=== PATIENT | male | born 1970 | race Caucasian/White ===

== ENCOUNTER → 2018-10-25 15:00 | Outpatient (CLI) | payer BC, SELFPAY ==
--- NOTE | 2018-10-25 15:06 | CT_ITS ---
CT abdomen pelvis wo con CLINICAL INDICATION: ITS.REASON: RT FLANK PAIN,HEMATURIA,FAMILY H/O STONES ORDERING PHYSICIAN: Darío Nguyễn MD PATIENT AGE: 48 years COMPARISON: None TECHNIQUE: Axial images obtained with sagittal and coronal reformats. All CT scans at the facility use one or more dose reduction, viz: automated exposure control, ma/kV adjustment per patient size (including targeted exams where dose is matched to indication, i.e. head), or iterative reconstruction technique. PROCEDURE: Oral Contrast: None IV Contrast: None . FINDINGS: Patchy density is present in the right lung base centrally consistent with some atelectatic change. There is a noncalcified 7 mm nodule in the left lower lobe laterally. There are coronary artery calcifications. The liver, gallbladder, spleen, adrenal glands, and pancreas have an unremarkable appearance. There is mild right hydronephrosis and hydroureter secondary to a 5 mm stone in the proximal right ureter at the L3-L4 level. A 3 mm nonobstructing stone is present in the upper pole the right kidney. The left kidney has an unremarkable appearance. No evidence of appendicitis, diverticulitis, intestinal obstruction, or free air. There is diverticulosis of the colon. Prostate is slightly enlarged at 5 cm. Urinary bladder has an unremarkable appearance. There is a small umbilical hernia which. No acute bony findings. Small sclerotic focus involves the left ilium posteriorly nonspecific and may be due to bone now. IMPRESSION: 1. 5 mm right proximal ureteral stone with mild right hydronephrosis and dilated proximal right ureter 2. Right nephrolithiasis. 3. 7 mm noncalcified nodule left lower lobe of the lung. Suggest 6 month follow-up
== END ==
PROVIDERS: PCP Family Medicine; Visit Provider Family Medicine
DX: R10.9 Unspecified abdominal pain (principal); R31.0 Gross hematuria; Z84.1 Family history of disorders of kidney and ureter
CPT/HCPCS: 74176

== ENCOUNTER → 2019-02-15 13:32 | Outpatient (CLI) | payer BC, SELFPAY ==
--- NOTE | 2019-02-15 14:04 | CT_ITS ---
PROCEDURE: CT CHEST W CON CLINICAL HISTORY: LUNG NODULE Follow-up lung nodule COMPARISON: [facility] CT abdomen pelvis wo con from 10/25/2018 TECHNIQUE: 75 mL Optiray 350 IV Axial images obtained with sagittal and coronal reformats. All CT scans at the facility use one or more dose reduction, viz: automated exposure control, ma/kV adjustment per patient size (including targeted exams where dose is matched to indication, i.e. head), or iterative reconstruction technique. FINDINGS: Scattered small nodes are present in the mediastinum. No hilar adenopathy. Some of the nodes contain calcium. Normal heart size. No evidence of pericardial effusion. Coronary artery calcifications are present. No evidence of aortic aneurysm or central pulmonary embolus. There is a 4 mm noncalcified nodule right upper lobe anteriorly. There are mild atelectatic or fibrotic changes in the right lung base with linear density in the right lower lobe posterior laterally consistent with an area of scarring similar to the previous exam. Left lower lobe nodule at 6 mm unchanged. No other nodules apparent. No effusions. No acute bony anomalies. IMPRESSION: 1. Stable 6 mm left lower lobe nodule. 4 mm right upper lobe nodule. Suggest 8 month follow-up to confirm 1 year stability 2. Coronary artery calcification 3. Mild fibrotic change right lower lobe Dictated by: Dom Montoya MD 02/17/2019 06:34 Electronically signed by Dom Montoya MD in [place] 02/17/2019 06:34
== END ==
PROVIDERS: PCP Family Medicine; Visit Provider Nurse Practitioner
DX: R93.89 Abnormal findings on diagnostic imaging of other specified body structures (principal)
CPT/HCPCS: 71260; Q9967

== ENCOUNTER → 2019-02-22 16:29 | Outpatient (CLI) | payer BC, SELFPAY ==
[2019-02-24 10:10] LABS: PSA, Free 0.33 ng/mL; Prostate Specific Ag 0.9 ng/mL (0.0-4.0)
== END ==
PROVIDERS: Visit Provider Nurse Practitioner
DX: Z12.5 Encounter for screening for malignant neoplasm of prostate (principal)
CPT/HCPCS: 36415; 84153; 84154

== ENCOUNTER → 2019-08-08 10:56 | Outpatient (CLI) | payer BC, SELFPAY ==
--- NOTE | 2019-08-08 11:18 | ECG_ITS ---
APPROVED REPORT Exam: Resting ECG HR:71 bpm ECG Measurements Heart Rate 71 AXES MA 174 P 51 QRSd 98 QRS 13 QT 368 T 25 QTc 399 <Conclusion> Normal sinus rhythm RSR' or QR pattern in V1 suggests right ventricular conduction delay Borderline ECG Electronically signed by : Darío Jung, 08/09/2019 16:11:57
[2019-08-08 11:31] LABS: Basophils # 0.1 K/mm3 (0-0.2); Basophils % 0.9 % (0.1-2.0); Eosinophils # 0.3 K/mm3 (0.0-0.4); Eosinophils % 5.1 % (0.1-12.0); Hematocrit 45.8 % (42.0-52.0); Hemoglobin 15.4 g/dL (14.1-18.0); Lymphocytes # 1.6 K/mm3 (0.7-4.5); Lymphocytes % 31.4 % (10-50); Mean Corpuscular HGB Conc 33.6 g/dL (31.8-35.4); Mean Corpuscular Hemoglobin 31.2 pg (27.0-31.2); Mean Corpuscular Volume 92.8 fl (80-94); Mean Platelet Volume 7.1 fl (7.4-10.4); Monocytes # 0.4 K/mm3 (0.1-1.0); Neutrophils # 2.8 K/mm3 (1.8-7.8); Neutrophils % 55.6 % (37.0-80.0); Platelet Count 341 K/mm3 (142-424); Red Blood Count 4.94 M/mm3 (4.60-6.20); Red Cell Distribution Width 12.8 % (11.5-17.5)
[2019-08-08 13:57] LABS: Anion Gap 10.5 mEq/L (5-15); Blood Urea Nitrogen 18 mg/dl (9-20); Calcium 9.8 mg/dl (8.4-10.2); Carbon Dioxide 28 mmol/L (22.0-30.0); Chloride 103 mmol/L (98-107); Estimated Glomerular Filt Rate 103 ml/min (>60); GFR (African American) 124 ML/MIN (>60); Glucose 103 mg/dl (74-100); Potassium 4.5 mmoL/L (3.5-5.1); Sodium 137 mmol/L (136-145)
== END ==
PROVIDERS: Visit Provider Surgery
DX: K42.9 Umbilical hernia without obstruction or gangrene (principal)
CPT/HCPCS: 36415; 80048; 85025; 93005

== ENCOUNTER → 2019-10-18 08:12 | Outpatient (CLI) | payer BC, SELFPAY ==
[2019-10-18 08:16] LABS: Microscopic, Urine URINE MICROSCOPIC (MICROSCOPIC)
--- NOTE | 2019-10-18 08:46 | ECG_ITS ---
APPROVED REPORT Exam: Resting ECG HR:65 bpm ECG Measurements Heart Rate 65 AXES [place] 170 P 61 QRSd 104 QRS 50 QT 378 T 57 QTc 393 <Conclusion> Normal sinus rhythm Normal ECG Electronically signed by : Darío Jung, 10/18/2019 20:47:31
[2019-10-18 08:57] LABS: Basophils # 0.1 K/mm3 (0-0.2); Basophils % 1.2 % (0.1-2.0); Eosinophils # 0.3 K/mm3 (0.0-0.4); Eosinophils % 5.6 % (0.1-12.0); Hematocrit 47.7 % (42.0-52.0); Hemoglobin 15.6 g/dL (14.1-18.0); Lymphocytes # 1.6 K/mm3 (0.7-4.5); Lymphocytes % 27.6 % (10-50); Mean Corpuscular HGB Conc 32.7 g/dL (31.8-35.4); Mean Corpuscular Volume 94.7 fl (80-94); Mean Platelet Volume 7.3 fl (7.4-10.4); Monocytes # 0.4 K/mm3 (0.1-1.0); Monocytes % 6.3 % (1.7-9.3); Neutrophils # 3.4 K/mm3 (1.8-7.8); Neutrophils % 59.2 % (37.0-80.0); Platelet Count 343 K/mm3 (142-424); Red Blood Count 5.04 M/mm3 (4.60-6.20); White Blood Count 5.7 K/mm3 (4.8-10.8)
[2019-10-18 09:06] LABS: Appearance,Urine CLEAR (Clear); Bilirubin,Urine Negative (Negative); Blood, Urine Negative (Negative); Color,Urine YELLOW (Yellow); Glucose,Urine (UA) Negative (Negative); Ketones,Urine Negative (Negative); Leukocyte Esterase,Urine Negative (Negative); Nitrate,Urine Negative (Negative); Protein,Urine Negative (Negative); Specific Gravity, Urine 1.025 (1.005-1.030); Urobilinogen,Urine 0.2 EU/dl (0.2)
[2019-10-18 09:48] LABS: Bacteria,Urine Trace /lpf; Squamous Epithelial Cell,Urine Occasional #/hpf (0-5)
[2019-10-18 10:44] LABS: Anion Gap 13.6 mEq/L (5-15); Blood Urea Nitrogen 21 mg/dl (9-20); Calcium 9.9 mg/dl (8.4-10.2); Carbon Dioxide 24 mmol/L (22.0-30.0); Chloride 105 mmol/L (98-107); Estimated Glomerular Filt Rate 103 ml/min (>60); GFR (African American) 124 ML/MIN (>60); Glucose 97 mg/dl (74-100); Potassium 4.6 mmoL/L (3.5-5.1); Sodium 138 mmol/L (136-145)
[2019-10-19 15:08] LABS: Covid-19 Nasal PCR Sendout Lex NOT DETECTED
== END ==
PROVIDERS: Visit Provider Surgery
DX: Z01.818 Encounter for other preprocedural examination (principal); K42.9 Umbilical hernia without obstruction or gangrene
CPT/HCPCS: 36415; 80048; 81001; 85025; 93005; U0003

== ENCOUNTER 2019-10-20 05:58 | Day surgery (SDC) | payer BC, SELFPAY ==
--- NOTE | 2019-10-17 09:31 | SUR.PREOP ---
10/17/19 @ 0932--PHONE CALL MADE TO PATIENT. PATIENT UNDERSTANDS THAT LAB WORK AND COVID TESTING NEEDS TO BE COMPLETED @ 0800 ON 10/18/19. PATIENT UNDERSTANDS IF LAB WORK AND COVID-19 TESTS ARE NOT COMPLETED BY 12PM ON THAT DATE, THE SURGERY SCHEDULED WILL BE CANCELLED AND RESCHEDULED FOR ANOTHER TIME.
[2019-10-18 13:58] VITALS: BMI 31.1
[2019-10-20] VITALS (10 sets, daily range): BP systolic 132–154; BP diastolic 74–95; PULSE 59–84; RESP 16–18; TEMP 36.1–43; O2SAT 95–98
--- NOTE | 2019-10-20 07:29 | P.PN_ITS ---
[facility] Anesthesia Checklist - Patient Identification Patient Identification: Arm Band, Verbal (Name & ) - Structural Data Admitted From: Home Planned Operative Procedure/s: Open umbilical hernia repair Consent for Planned Operative Procedure(s) Verified: Yes Verified Documents: Surgical Consent, History and Physical - NPO Status Verified Time NPO: 19:00 - Chart Verification Results Verified: CBC (Covid19 negative), BMP, ECG - Additional verifications Anesthesia Reactions: No Hx Blood Transfusions: No Blood Transfusion Reaction: No - Airway Assessment C-Spine Mobility Assessed: Yes TMJ Mobility Assessed: Yes Dentition: Good Dentition (missing teeth) - Neurological Assessment Level of Consciousness: Awake, Alert, Appropriate, Follows Commands Hx Seizures: No Numbness or tingling in extremities: No - Anesthesia Plan Anesthesia Risk discussed: Yes Anesthesia Plan: Verified ASA Class: II Anesthesia Type: General [facility] History I have reviewed the patient's past medical history: Yes Medical History: Reports:: Asthma, Hyperlipidemia, Hypertension Denies:: Cancer, Diabetes Mellitus Type 1, Diabetes Mellitus Type 2, Internal Pacemaker, MRSA, Seizures *Have you ever received a pneumonia vaccine?: No *Have you received a flu vaccine this season?: Yes Other Medical History: Denies: Blood Transfusion Reaction Anesthesia experience/problems:: no prior complications Other Surgeries: Yes: Other. No: Pacemaker Amputation: No Fractures: No - *Social History Educational Level: Completed High School Smoking Status: Never smoker Alcohol Intake: never Substance Use Type: denies use *Occupational Status:: employed Housing: house Household Members: spouse, family *Travel in the last 8 weeks: None Family Hx:: Asthma, Cancer, Coronary Artery Disease, Diabetes, Heart Attack, Hyperlipidemia, Hypertension, Stroke, Tuberculosis
--- NOTE | 2019-10-20 08:03 | HMH.OPNOTE ---
Date of procedure: 10/20/19 Pre-op Diagnosis:: Umbilical hernia Post-op Diagnosis:: Same Procedure performed:: Open repair of umbilical hernia with placement of 4.3 cm VentraLex Surgeon:: Kobe Balderas MD SENIOR SOFTWARE QA ANALYST:: Jovany Rogers Anesthesia: GETA Estimated blood loss (mL): 10 Operative findings:: Fingertip defect with intermittently-incarcerated preperitoneal fat Operative note:: After informed consent was obtained the patient was taken to the operating room and placed in the supine position. General anesthesia was induced and his abdomen was prepped and draped in a sterile fashion. After infiltration local anesthetic an infraumbilical incision was made. The deep subcutaneous tissue was dissected with a combination of scalpel and electrocautery. The umbilical stump was elevated and transected. A fingertip defect with preperitoneal fat was encountered. A 4.3 cm VentraLex mesh was secured in position with 0 Ethibond. A primary overlying closure with 0 Ethibond was then completed. The wound was thoroughly irrigated. The umbilical stump was reapproximated with 2-0 Vicryl. Skin was then closed with interrupted 4-0 Monocryl. Dressings were applied and the patient was transferred to recovery in stable condition. Condition: stable Disposition: PACU Specimens:: None Complications:: No immediate
--- NOTE | 2019-10-20 08:09 | HMH.ANESI ---
[facility] Anesthesia Record Part I Intake, IV Amount: 800 Estimated blood loss (mL): 2 Urine output (mL): 50 Blood Products used (#): none Blood Pressure: 154/95 SaO2: 96 Pulse Rate: 73 Respiratory Rate: 16 Temperature: 97.0 F Patient is:: Awake, Stable Stable to PACU at:: 08:05
--- NOTE | 2019-10-20 08:50 | PC.NURSE ---
0833-detailed report called to JHON Walker 0835-pt transported to post op via stretcher with bryanna rails up and left in care of JHON Walker with bed locked in lowest position. VSS, pt stable.
[2019-10-20 08:58] LABS: Microscopic,Cath URINE MICROSCOPIC (MICROSCOPIC)
[2019-10-20 10:13] LABS: Appearance,Urine/Cath CLEAR (Clear); Bilirubin,Cath Negative (Negative); Blood, Urine/Cath Negative (Negative); Color,Urine/Cath YELLOW (Yellow); Glucose,Urine/Cath (UA) Negative (Negative); Ketones,Urine/Cath Negative (Negative); Leukocyte Esterase,Cath Negative (Negative); Nitrate,Cath Negative (Negative); Protein,Urine/Cath Negative (Negative); Specific Gravity, Urine/Cath 1.025 (1.005-1.030); Urobilinogen,Cath 0.2 EU/dl (0.2)
[2019-10-20 11:27] LABS: RBC,Urine/Cath Occasional # /hpf (0-3); Squamous Epithelial Ur./Cath Occasional #/hpf (0-5)
--- NOTE | 2019-10-20 11:28 | HMH.ANESII ---
[facility] Anesthesia Record Part II Discharge Time: 08:50 Destination: Home PACU nurse assessment reviewed?: Yes Patient Condition:: Good Anesthesia Complications:: None Swallowing reflex intact?: Yes Cyanosis?: No Blood Pressure: 136/93 Pulse Rate: 59 Temperature: 97.5 F Mental Status: Alert & Oriented Pain level:: 2 Nausea and/or vomitting:: None Intake, IV Amount: 0
== END 2019-10-20 09:05 | disposition home or self-care (01) ==
LOC: OR 05:59
PROVIDERS: PCP Nurse Practitioner; Visit Provider Surgery
PROC: (CPT 49587; principal; 2019-10-20 07:30)
DX: K42.9 Umbilical hernia without obstruction or gangrene (principal); I10 Essential (primary) hypertension; Z79.899 Other long term (current) drug therapy
CPT/HCPCS: 49587; 81001; 96374; C1781; J2405; J2710

== ENCOUNTER 2020-05-01 09:37 | Emergency (ER) | payer BC, SELFPAY ==
[2020-05-01 10:09] VITALS: BP 112/77; PULSE 71; RESP 14; TEMP 36.8; O2SAT 97; BMI 32.5
--- NOTE | 2020-05-01 10:12 | HMH.EDUTC ---
[facility] [place] Impression: Exposure to COVID-19 virus, Encounter for laboratory testing for COVID-19 virus Disposition: Home, Self-Care Condition on Discharge: Good Instructions: Preventing the Spread of Coronavirus Discharge Instructions Additional Instructions: *Monitor Temp, Over the counter Motrin or Tylenol as directed/as needed Tylenol every 4 hours and Motrin every 6 hours (as long as your family doctor has told you that you can take it) for fever or pain. and straight to ER if unable to lower temp less than 101.0 after medication given *Warm salt water gargles may help to soothe the throat *Throat Lozenges *Warm fluids like tea with honey may help to soothe the throat *Sleep elevated *Humidifier/Vaporizer *Flonase 2 sprays in each nostril daily but be aware that it may take 2-3 days before you notice improvement Follow up IMMEDIATELY for new or worsening symptoms or no Noticeable improvement over the next 48-72 hours. 911 for difficulty breathing or swallowing You was tested for today for COVID19 your test result should be back in the next 24-48 hours, you may call to the [facility] tomorrow to see if your test results are back and the result [phone] You was given a handout with instructions for Self Quarantine and Self isolation for while you wait on test results and what to do if they are positive If you are positive the Health Dept will be contacting you also Referrals: Susanna Hernandez APRN [Primary Care Provider] - As needed Forms: Work/School Release Time of Disposition: 10:15 Medical Decision Making - Connor Inquiry Pt receiving controlled substance: No Connor was queried for this patient: No Vital Signs: 05/01/20 10:09 Temperature 98.2 F Temperature Source Oral Pulse Rate [Radial] 71 Respiratory Rate 14 Blood Pressure [Right Arm] 112/77 Blood Pressure Mean [Right Arm] 88 Blood Pressure Source [Right Arm] Automatic Cuff Blood Pressure Position [Right Arm] Sitting 02 Sat by Pulse Oximetry 97 Oxygen Delivery Method Room Air Orders (Tests/Meds): ORDERS Category Date Time Status Covid-19 Nasal PCR ([facility]) Routine Lab 05/01/20 09:43 [place] [facility] [place] - General Stated complaint: covid test, exposure Time Seen by Provider: 05/01/20 10:13 Mode of Arrival: Ambulatory Source of Information: Patient Limitations: No Limitations Description of Symptoms (Recalled from Triage Doc. by RN): covid test HEENT Symptoms (Recalled from RN notes): No Resp Symptoms (Recalled from RN notes): No Skin Symptoms (Recalled from RN notes): No MS Symptoms (Recalled from RN notes): No Functional Status (Recalled from RN notes): wnl - History of Present Illness Provider Complaint: Patient requesting COVID test States that he was around his brother helping him move about a week ago and since then his brother tested positive for COVID and he was concerned and wanted to get tested Denies any symptoms - Related Data Home Medications Medication Instructions Recorded Confirmed Losartan Potassium [Cozaar 50mg 50 mg PO DAILY 05/28/19 11/01/19 Tablets] Pravastatin Sodium [Pravachol 40mg 80 mg PO DAILY 05/28/19 11/01/19 Tablet] Beclomethasone Dipropionate [Qvar] 8.7 gm IH DAILY 10/18/19 11/01/19 Ascorbic Acid [Vitamin C] 500 mg PO DAILY 10/20/19 11/01/19 Aspirin [Adult Low Dose Aspirin EC] 81 mg PO DAILY 10/20/19 11/01/19 Fish Oil/Dha/Epa [Fish Oil 1,200 1 each PO DAILY 10/20/19 11/01/19 mg Fish Oil] Garlic 1 each PO DAILY 10/20/19 11/01/19 Glucosa Fournier 2Kcl/Chondroitin Fournier 1 each PO DAILY 10/20/19 11/01/19 [Glucosamine & Chondroitin Cap] Loratadine 10 mg PO DAILY 10/20/19 11/01/19 Multivitamin [Multivitamins] 1 each PO DAILY 10/20/19 11/01/19 Turmeric Root Extract [Turmeric 500 mg PO DAILY 10/20/19 11/01/19 Curcumin] Previous Rx's Medication Instructions Recorded Hydrocod/Acet 5/325 mg [[place] 1 - 2 tab PO Q6HP PRN #17 tab 10/20/19 5/325mg tablet] Allergies A
[2020-05-01 10:28] VITALS: BP 112/77; PULSE 71; RESP 14; TEMP 36.8; O2SAT 97
== END 2020-05-01 10:29 | disposition home or self-care (01) ==
PROVIDERS: Emergency Provider Nurse Practitioner; PCP Nurse Practitioner
DX: Z20.828 Contact with and (suspected) exposure to other viral communicable diseases (principal)
CPT/HCPCS: 99201; U0003

== ENCOUNTER 2020-06-12 16:58 | Emergency (ER) | payer BC, SELFPAY ==
[2020-06-12 17:15] VITALS: BP 130/71; PULSE 87; RESP 19; TEMP 36.6; O2SAT 99; BMI 32.5
--- NOTE | 2020-06-12 17:33 | HMH.EDUTC ---
[facility] [place] Impression: Exposure to COVID-19 virus Disposition: Home, Self-Care Condition on Discharge: Good Instructions: DI for COVID-19 (Suspected or Confirmed ), Coronavirus Disease 2019, COVID-19: Testing and Tracing, Preventing the Spread of Coronavirus Discharge Instructions Additional Instructions: *Monitor Temp, Over the counter Motrin or Tylenol as directed/as needed Tylenol every 4 hours and Motrin every 6 hours (as long as your family doctor has told you that you can take it) for fever or pain. and straight to ER if unable to lower temp less than 101.0 after medication given *Warm salt water gargles may help to soothe the throat *Throat Lozenges *Warm fluids like tea with honey may help to soothe the throat *Sleep elevated *Humidifier/Vaporizer Follow up IMMEDIATELY for new or worsening symptoms or no Noticeable improvement over the next 48-72 hours. 911 for difficulty breathing or swallowing You were tested for today for COVID19 your test result should be back in the next 24-48 hours, you may call to the [facility] to see if your test results are back in the next 48 hours [phone] [facility] hours are 9am-9pm You was given a handout with instructions for Self Quarantine and Self isolation for while you wait on test results and what to do if they are positive If you are positive the Health Dept will be contacting you also Referrals: Susanna Hernandez APRN [Primary Care Provider] - As needed Forms: Work/School Release Time of Disposition: 17:34 Medical Decision Making - Connor Inquiry Pt receiving controlled substance: No Connor was queried for this patient: No Vital Signs: 06/12/20 17:15 Temperature 98 F Temperature Source Oral Pulse Rate [Right Brachial] 87 Respiratory Rate 19 Blood Pressure [Right Arm] 130/71 Blood Pressure Mean [Right Arm] 90 Blood Pressure Source [Right Arm] Automatic Cuff Blood Pressure Position [Right Arm] Sitting 02 Sat by Pulse Oximetry 99 Oxygen Delivery Method Room Air Orders (Tests/Meds): ORDERS Category Date Time Status Covid-19 Nasal PCR Sendout P&[facility] Stat Lab 06/12/20 17:00 Received [facility] [place] - General Stated complaint: Covid test Time Seen by Provider: 06/12/20 17:33 Mode of Arrival: Ambulatory Source of Information: Patient Limitations: No Limitations Description of Symptoms (Recalled from Triage Doc. by RN): PATIENT REQUESTING COVID TEST D/T EXPOSURE; DENIES SYMPTOMS HEENT Symptoms (Recalled from RN notes): No Resp Symptoms (Recalled from RN notes): No Skin Symptoms (Recalled from RN notes): No MS Symptoms (Recalled from RN notes): No Functional Status (Recalled from RN notes): WNL - History of Present Illness Provider Complaint: Patient states that they was recently playing cards with some friends and found out the next day that one of them tested positive for COVID after waking up with symptoms State that he is not having any symptoms but wanted to get checked - Related Data Home Medications Medication Instructions Recorded Confirmed Losartan Potassium [Cozaar 50mg 50 mg PO DAILY 05/28/19 11/01/19 Tablets] Pravastatin Sodium [Pravachol 40mg 80 mg PO DAILY 05/28/19 11/01/19 Tablet] Beclomethasone Dipropionate [Qvar] 8.7 gm IH DAILY 10/18/19 11/01/19 Ascorbic Acid [Vitamin C] 500 mg PO DAILY 10/20/19 11/01/19 Aspirin [Adult Low Dose Aspirin EC] 81 mg PO DAILY 10/20/19 11/01/19 Fish Oil/Dha/Epa [Fish Oil 1,200 1 each PO DAILY 10/20/19 11/01/19 mg Fish Oil] Garlic 1 each PO DAILY 10/20/19 11/01/19 Glucosa Fournier 2Kcl/Chondroitin Fournier 1 each PO DAILY 10/20/19 11/01/19 [Glucosamine & Chondroitin Cap] Loratadine 10 mg PO DAILY 10/20/19 11/01/19 Multivitamin [Multivitamins] 1 each PO DAILY 10/20/19 11/01/19 Turmeric Root Extract [Turmeric 500 mg PO DAILY 10/20/19 11/01/19 Curcumin] Previous Rx's Medication Instructions Recorded Hydrocod/Acet 5/325 mg [[place] 1 - 2 tab PO Q6HP PRN #17 tab 10/20/19 5/325mg tablet]
[2020-06-12 17:43] VITALS: BP 130/71; PULSE 87; RESP 19; TEMP 36.7; O2SAT 99
[2020-06-14 13:48] LABS: Covid-19 Nasal PCR Sendout P&C POSITIVE
--- NOTE | 2020-06-14 14:00 | PC.NURSE ---
notified pt of positive covid results
== END 2020-06-12 17:49 | disposition home or self-care (01) ==
PROVIDERS: Emergency Provider Nurse Practitioner; PCP Nurse Practitioner
DX: U07.1 COVID-19 (principal); I10 Essential (primary) hypertension; E78.5 Hyperlipidemia, unspecified; J45.909 Unspecified asthma, uncomplicated; Z79.899 Other long term (current) drug therapy
CPT/HCPCS: 99201; U0004

== ENCOUNTER → 2020-10-24 13:43 | Outpatient (CLI) | payer BC, SELFPAY ==
--- NOTE | 2020-10-24 13:46 | US_ITS ---
PROCEDURE: US BREAST LT COMPLETE CLINICAL INDICATION: LT BREAST LUMP COMPARISON: No exams were available for comparison FINDINGS: There is a focal well-defined hyperechoic lesion noted in the subcutaneous soft tissues at 4 o'clock position at the site of palpable lesion measuring 2.1 x 0.8 centimeters, demonstrates no significant internal vascularity. Second focal lesion noted at 1 o'clock position, near to the nipple measuring 1.3 x 1.3 x 0.8 centimeters, demonstrates hyperechogenicity and well-defined margins. Left axillary lymph nodes noted measuring up to 0.9 centimeters with central fatty hilum. IMPRESSION: Findings are consistent with lipomas. No suspicious findings or mass lesions. BI-RADS category 2, benign findings. Follow-up as clinically indicated. Dictated by: Mehreen Sparrow 10/24/2020 14:55 Mehreen Sparrow in [facility] 10/24/2020 14:55
== END ==
PROVIDERS: PCP Nurse Practitioner; Visit Provider Nurse Practitioner Family
DX: N63.20 Unspecified lump in the left breast, unspecified quadrant (principal)
CPT/HCPCS: 76641

== ENCOUNTER → 2020-10-30 10:29 | Outpatient (CLI) | payer BC, SELFPAY ==
[2020-10-30 10:57] LABS: Basophils # 0.1 K/mm3 (0-0.2); Basophils % 0.8 % (0.1-2.0); Eosinophils # 0.4 K/mm3 (0.0-0.4); Eosinophils % 6.3 % (0.1-12.0); Hematocrit 45.2 % (42.0-52.0); Lymphocytes # 1.8 K/mm3 (0.7-4.5); Lymphocytes % 28.2 % (10-50); Mean Corpuscular HGB Conc 33.1 g/dL (31.8-35.4); Mean Corpuscular Hemoglobin 30.5 pg (27.0-31.2); Mean Corpuscular Volume 92.1 fl (80-94); Mean Platelet Volume 7.1 fl (7.4-10.4); Monocytes # 0.4 K/mm3 (0.1-1.0); Monocytes % 6.7 % (1.7-9.3); Neutrophils # 3.7 K/mm3 (1.8-7.8); Neutrophils % 58.1 % (37.0-80.0); Platelet Count 320 K/mm3 (142-424); Red Blood Count 4.91 M/mm3 (4.60-6.20); Red Cell Distribution Width 13.1 % (11.5-17.5); White Blood Count 6.3 K/mm3 (4.8-10.8)
[2020-10-30 11:20] LABS: Chloride 105 mmol/L (98-107); Sodium 140 mmol/L (136-145)
[2020-10-30 11:21] LABS: Potassium 4.6 mmoL/L (3.5-5.1)
[2020-10-30 11:23] LABS: Blood Urea Nitrogen 16 mg/dl (9-20); Estimated Glomerular Filt Rate 102 ml/min (>60); GFR (African American) 124 ML/MIN (>60)
[2020-10-30 11:24] LABS: Anion Gap 12.6 mEq/L (5-15); Calcium 9.6 mg/dl (8.4-10.2); Carbon Dioxide 27 mmol/L (22.0-30.0); Glucose 86 mg/dl (74-100)
== END ==
PROVIDERS: Visit Provider Surgery
DX: Z01.812 Encounter for preprocedural laboratory examination (principal); Z11.52 Encounter for screening for COVID-19; D17.9 Benign lipomatous neoplasm, unspecified
CPT/HCPCS: 36415; 80048; 85025; U0003

== ENCOUNTER 2020-11-01 06:08 | Day surgery (SDC) | payer BC, SELFPAY ==
[2020-10-31 09:53] VITALS: BMI 32.5
[2020-11-01] VITALS (13 sets, daily range): BP systolic 111–130; BP diastolic 67–84; PULSE 66–83; RESP 16–18; TEMP 36.2–38; O2SAT 91–98
--- NOTE | 2020-11-01 06:30 | ECG_ITS ---
APPROVED REPORT Exam: Resting ECG HR:70 bpm ECG Measurements Heart Rate 70 AXES NE 176 P 39 QRSd 102 QRS -1 QT 386 T 22 QTc 416 Conclusion Normal sinus rhythm Normal ECG Electronically signed by : Darío Jung, 11/01/2020 09:06:28
--- NOTE | 2020-11-01 07:01 | P.PN_ITS ---
[facility] Anesthesia Checklist - Patient Identification Patient Identification: Arm Band - Structural Data Admitted From: Home Planned Operative Procedure/s: Exscision neoplasm Consent for Planned Operative Procedure(s) Verified: Yes - NPO Status Verified Time NPO: 00:00 - Additional verifications Anesthesia Reactions: No Hx Blood Transfusions: No Blood Transfusion Reaction: No - Airway Assessment C-Spine Mobility Assessed: Yes TMJ Mobility Assessed: Yes Dentition: Good Dentition (Missing) - Neurological Assessment Hx Seizures: No Numbness or tingling in extremities: No - Anesthesia Plan Anesthesia Risk discussed: Yes Anesthesia Plan: Verified ASA Class: II Anesthesia Type: General [facility] History I have reviewed the patient's past medical history: Yes Medical History: Reports:: Asthma, Hyperlipidemia, Hypertension Denies:: Cancer, Diabetes Mellitus Type 1, Diabetes Mellitus Type 2, Internal Pacemaker, MRSA, Seizures *Have you ever received a pneumonia vaccine?: No *Have you received a flu vaccine this season?: No Other Medical History: Denies: Blood Transfusion Reaction Anesthesia experience/problems:: None Other Surgeries: Yes: Colonoscopy, Hernia Repair, Other. No: Pacemaker Amputation: No Fractures: No - *Social History Last grade of school completed: High school graduate Smoking Status: Never smoker Alcohol Intake: never Substance Use Type: denies use *Occupational Status:: employed Housing: house Household Members: spouse *Travel in the last 8 weeks: None Family Hx:: Cancer, Diabetes, Hyperlipidemia, Hypertension, Stroke
--- NOTE | 2020-11-01 07:57 | HMH.OPNOTE ---
Date of procedure: 11/01/20 Pre-op Diagnosis:: Left mid/lower back lipomatous lesions (4 cm and 2 cm) Post-op Diagnosis:: Same Procedure performed:: Excision of left mid/lower back lipomatous lesions (x2) Lateral incision -4 cm length mass Medial incision -2 cm length mass Surgeon:: Kobe Balderas MD Anesthesia: LMA Estimated blood loss (mL): 15 Operative findings:: No singular lipomatous growth. Multiple tiny lipomatous lesions noted throughout both sites. The lipomatous lesions were essentially scattered throughout the subcutaneous tissue and approached the fascial margin. Operative note:: After informed consent was obtained the patient was taken to the operating room and placed in the supine position. General anesthesia was induced and he was transferred to the right lateral decubitus position. After infiltration of local anesthetic an incision was made over the palpable lesions (x2). The deep subcutaneous tissue was dissected. Multiple small lipomatous lesions were encountered. The lipomatous lesions were throughout the subcutaneous tissue and approaching the fascial margin. The lipomatous lesions were excised with a combination of blunt dissection and electrocautery. They were passed off for pathologic evaluation. Similar lesions were noted within the medial and within the lateral site. Electrocautery was utilized to achieve hemostasis for both sites. The fascial margin deep within the lateral incision was reapproximated with running 2-0 Vicryl. Skin for both incisions was then closed with interrupted 4-0 nylon. Dressings were applied and the patient was transferred to recovery in stable condition. Condition: stable Disposition: PACU Specimens:: Left mid/lower back lipomatous lesion-medial Left mid/lower back lipomatous lesion-lateral Complications:: No immediate
--- NOTE | 2020-11-01 08:04 | HMH.ANESI ---
[facility] Anesthesia Record Part I Intake, IV Amount: 700 Estimated blood loss (mL): 10 Urine output (mL): 0 Blood Pressure: 118/67 SaO2: 91 Pulse Rate: 67 Respiratory Rate: 16 Temperature: 98.1 F Patient is:: Drowsy, Stable Stable to PACU at:: 08:00
--- NOTE | 2020-11-01 09:38 | HMH.ANESII ---
[facility] Anesthesia Record Part II Discharge Time: 08:30 Destination: Surgical Day Care (OP Surgery) PACU nurse assessment reviewed?: Yes Patient Condition:: Good Anesthesia Complications:: None Swallowing reflex intact?: Yes Cyanosis?: No Blood Pressure: 120/77 Pulse Rate: 83 Temperature: 97.4 F Mental Status: Alert & Oriented Pain level:: 0 Nausea and/or vomitting:: None Intake, IV Amount: 0
== END 2020-11-01 09:30 | disposition home or self-care (01) ==
LOC: OR 06:08
PROVIDERS: PCP Family Medicine; Visit Provider Surgery
PROC: (CPT 11404; principal; 2020-11-01 07:30)
DX: D17.1 Benign lipomatous neoplasm of skin and subcutaneous tissue of trunk (principal); J45.909 Unspecified asthma, uncomplicated; E78.5 Hyperlipidemia, unspecified; I10 Essential (primary) hypertension; Z80.9 Family history of malignant neoplasm, unspecified; Z83.438 Family history of other disorder of lipoprotein metabolism and other lipidemia; Z82.3 Family history of stroke; Z82.49 Family history of ischemic heart disease and other diseases of the circulatory system; Z79.82 Long term (current) use of aspirin; Z79.899 Other long term (current) drug therapy
CPT/HCPCS: 11404; 11402; 93005; 96374; J2405

== ENCOUNTER 2020-11-10 07:31 | Emergency (ER) | payer BC, SELFPAY ==
[2020-11-10 07:45] VITALS: BP 147/95; PULSE 56; RESP 18; TEMP 36.4; O2SAT 96; BMI 32.5
[2020-11-10 08:00] VITALS: BP 139/93; PULSE 64; O2SAT 94
[2020-11-10 08:15] VITALS: BP 123/74; PULSE 57; O2SAT 91
--- NOTE | 2020-11-10 08:21 | HMH.EDGENADL ---
ED Disposition Clinical Impression: Postoperative wound dehiscence Qualifiers: Encounter type: initial encounter Qualified Code(s): T81.31XA - Disruption of external operation (surgical) wound, not elsewhere classified, initial encounter Disposition: Home, Self-Care Condition on Discharge: Good Instructions: DI for Laceration Repair -- Simple Additional Instructions: You have been evaluated for postoperative wound, repair. Please follow-up with your surgeon in 24 to 48 hours for recheck. Have sutures removed in 7 to 10 days. Keep wound dressed. You may shower in 24 hours. Return to the emergency department for any new or worsening symptoms. Referrals: Darío Nguyễn MD [Primary Care Provider] - Time of Disposition: 08:27 - Critical Care Critical Care Time: No Attestation: On 11/10/20, the high probability of a clinically significant, sudden or life threatening deterioration of the following system(s) required my full and direct attention, intervention and personal management. The time I documented below is in addition to time spent performing reported procedures but includes the following listed in this critical care notation. Medical Decision Making - Medical Records Medical records reviewed: Yes: I reviewed the patient's medical records. - Connor Inquiry Pt receiving controlled substance: No Vital Signs: 11/10/20 07:45 11/10/20 08:00 Temperature 97.5 F L Temperature Source Oral Pulse Rate 64 Pulse Rate [Left Radial] 56 L Respiratory Rate 18 Blood Pressure 139/93 H Blood Pressure [Right Arm] 147/95 H Blood Pressure Mean [Right Arm] 112 Blood Pressure Source [Right Arm] Automatic Cuff Blood Pressure Position [Right Arm] Sitting 02 Sat by Pulse Oximetry 96 94 L Oxygen Delivery Method Room Air Orders (Tests/Meds): ED MEDICATIONS Discontinued Medications Generic Name Dose Route Start Last Admin Trade Name Freq PRN Reason Stop Dose Admin Lidocaine HCl 5 ml 11/10/20 07:56 11/10/20 08:07 Lidocaine 1% 10ml Mdv SQ 11/10/20 07:57 5 ml ONCE ONE Administration Medical Decision Narrative: In summary this is a 50-year-old male presenting to the emergency department with a postoperative complication, open skin wound. Patient clinically stable on arrival. There is a 2 cm opening on the left side of one of the incisions. Anesthetized with 1% lidocaine. 2 vertical mattress sutures placed. Dermabond applied over the skin layer. Well-tolerated. Patient instructed to have a follow-up with his surgeon, Dr. Balderas in the next 24 to 48 hours. He already has an appointment scheduled. Given return precautions for any new or worsening pain, drainage, other concerns. General Adult HPI - General Chief complaint: Skin/Abscess/Foreign Body Stated complaint: opened surgical site Time Seen by Provider: 11/10/20 08:01 Mode of Arrival: Ambulatory Source of Information: Patient Limitations: No Limitations Description of Symptoms (Recalled from ER Triage Doc. by RN): pt had a surgical procedure on his left side on the , the doctor had removed 2 stitches and this morning he noticed that the area opened up and had some seriousangious drainage. No redness or s/s of infection noted at this time. - History of Present Illness HPI narrative: 50-year-old male presenting to the emergency department with a wound on his left flank. He had lipomas removed by general surgery, Dr. Balderas 9 days ago. He had sutures in for 4 days. Last night he bent to pick something up and when he stood up noticed that there was reddish-yellow fluid draining out of the left side of his back, at one of the wounds. His dressed it and they presented to the emergency department this morning. No fevers, chills, nausea, vomiting. Not on antibiotics. - Related Data Home Medications Medication Instructions Recorded Confirmed Losartan Potassium [Cozaar 50mg 50 mg PO DAILY 05/28/19 11/05/20 Tablets] P
[2020-11-10 08:29] VITALS: BP 123/74; PULSE 73; O2SAT 94
[2020-11-10 08:30] VITALS: BP 123/74; PULSE 73; RESP 18; TEMP 36.4; O2SAT 94
== END 2020-11-10 08:35 | disposition home or self-care (01) ==
PROVIDERS: Emergency Provider Emergency Medicine; PCP Family Medicine
DX: T81.31XA Disruption of external operation (surgical) wound, not elsewhere classified, initial encounter (principal)
CPT/HCPCS: 12020; 99282

== ENCOUNTER → 2020-12-11 07:57 | Outpatient (CLI) | payer BC, SELFPAY | PROVIDERS: Visit Provider Internal Medicine Gastroenterology | DX: Z20.822 Contact with and (suspected) exposure to COVID-19 (principal) | CPT/HCPCS: U0003 ==

== ENCOUNTER 2020-12-13 07:34 | Day surgery (SDC) | payer BC, SELFPAY ==
[2020-12-04 13:42] VITALS: BMI 32.9
[2020-12-13 07:42] VITALS: BP 147/87; PULSE 79; RESP 20; TEMP 36.3; O2SAT 94
[2020-12-13 08:32] VITALS: O2SAT 97
--- NOTE | 2020-12-13 08:32 | HMH.ANESCL ---
[facility] Anesthesia Checklist - Patient Identification Patient Identification: Arm Band - Structural Data Admitted From: Home Planned Operative Procedure/s: colonoscopy Consent for Planned Operative Procedure(s) Verified: Yes Verified Documents: Surgical Consent, History and Physical - NPO Status Verified Time NPO: 00:00 - Additional verifications Anesthesia Reactions: No Hx Blood Transfusions: No Blood Transfusion Reaction: No - Airway Assessment C-Spine Mobility Assessed: Yes (mp2) TMJ Mobility Assessed: Yes Dentition: Good Dentition - Neurological Assessment Level of Consciousness: Awake, Alert - Anesthesia Plan Anesthesia Risk discussed: Yes Anesthesia Plan: Verified ASA Class: II Anesthesia Type: MAC [facility] History I have reviewed the patient's past medical history: Yes Medical History: Reports:: Asthma, Hyperlipidemia, Hypertension Denies:: Cancer, Diabetes Mellitus Type 1, Diabetes Mellitus Type 2, Internal Pacemaker, MRSA, Seizures *Have you ever received a pneumonia vaccine?: No *Have you received a flu vaccine this season?: No Other Medical History: Denies: Blood Transfusion Reaction Anesthesia experience/problems:: nac Other Surgeries: Yes: Colonoscopy, Hernia Repair, Other. No: Pacemaker Amputation: No Fractures: No - *Social History Last grade of school completed: High school graduate Smoking Status: Never smoker Alcohol Intake: never Substance Use Type: denies use *Occupational Status:: employed Housing: house Household Members: spouse, family *Travel in the last 8 weeks: None Family Hx:: Cancer
--- NOTE | 2020-12-13 08:36 | HMH.PROC ---
[facility] Procedure Note Procedure Note:: Colonoscopy Procedure Report: Colonoscopy Endoscopist: Karan Valles II, MD Referring physician: WENDI Burgess/Darío Nguyễn MD Date of Procedure: December 13, 2020 Equipment: Olympus 190 variable stiffness pediatric colonoscope Sedation: MAC sedation Indication: Mr. Bustos is a 50-year-old gentleman who is here for initial screening colonoscopy. The patient reports no abdominal pain, weight loss, change in his bowel habits or hematochezia. He reports no family history of colon cancer. He does have some occasional spotting of blood from internal hemorrhoids. Procedure: Prior to the procedure, a history and physical exam was performed, and patient's medications and allergies were reviewed. The risks, benefits and alternatives of the sedation and procedure were discussed with the patient. All questions were answered and informed consent was obtained. The patient was brought to the procedure room. Patient identification and proposed procedure were verified by the physician and the nurse. The patient was placed in a left lateral decubitus position and the scope was passed under direct vision. Throughout the procedure, the patient's blood pressure, pulse, and oxygen saturations were monitored continuously. The colonoscopy was accomplished without difficulty. The patient tolerated the procedure well. Findings: On digital rectal examination there was normal rectal tone. There were no external hemorrhoids. The prostate was 2+, smooth, soft, symmetric without nodules. The colonoscope was introduced through the anal canal to the rectum and advanced to the cecum. The ileocecal valve and appendiceal orifice were identified. The scope was advanced a short distance into the ileum which appeared grossly normal. The scope was then withdrawn into the colon. The cecum, ascending and transverse colon and mucosa were grossly normal. There were scattered diverticuli throughout the descending and sigmoid colon (LEFT colon). The rectum itself was normal. Upon retroflexion within the rectum there were grade 2 internal hemorrhoids. The preparation was excellent throughout with Clarence Preparation Score of 9. The cecal time was 12 minutes. Impression: 1. Left-sided diverticulosis 2. Grade 2 internal hemorrhoids Plan: The patient will not require screening/surveillance colonoscopy again for 10 years by ACS guidelines. I would encourage fiber supplementation on a long-term daily maintenance basis.
[2020-12-13 08:55] VITALS: BP 146/82; PULSE 66; RESP 18; TEMP 36.3; O2SAT 91
[2020-12-13 09:05] VITALS: BP 128/95; PULSE 69; RESP 18; O2SAT 95
[2020-12-13 09:15] VITALS: BP 137/87; PULSE 61; RESP 18; O2SAT 97
[2020-12-13 09:26] VITALS: BP 136/82; PULSE 61; RESP 18; O2SAT 97
== END 2020-12-13 09:31 | disposition home or self-care (01) ==
LOC: OUTP 07:34
PROVIDERS: PCP Family Medicine; Visit Provider Internal Medicine Gastroenterology
PROC: 0DJD8ZZ Inspection of Lower Intestinal Tract, Via Natural or Artificial Opening Endoscopic (ICD-10-PCS; CPT 45378; principal; 2020-12-13 09:00)
DX: Z12.11 Encounter for screening for malignant neoplasm of colon (principal); K57.30 Diverticulosis of large intestine without perforation or abscess without bleeding; K64.1 Second degree hemorrhoids
CPT/HCPCS: 45378

== ENCOUNTER → 2021-11-08 10:13 | Outpatient (CLI) | payer BC, SELFPAY ==
[2021-11-08 10:50] LABS: Alanine Aminotransferase 65 U/L (12-78); Albumin Level 4.1 g/dl (3.5-5.0); Albumin/Globulin Ratio 1.3 (1.1-1.8); Alkaline Phosphatase 59 U/L (38-126); Aspartate Amino Transferase 40 U/L (17-59); Bilirubin,Total 0.8 mg/dl (0.2-1.3); Blood Urea Nitrogen 20 mg/dl (9-20); Calcium 9.3 mg/dl (8.4-10.2); Carbon Dioxide 24 mmol/L (22.0-30.0); Chloride 107 mmol/L (98-107); Chol/HDL Ratio 4.6 (1-3.5); Cholesterol 172 mg/dl (140-200); Estimated Glomerular Filt Rate 102 ml/min (>60); GFR (African American) 123 ML/MIN (>60); Globulin 3.1 g/dL (1.3-3.2); Glucose 118 mg/dl (74-100); HDL Cholesterol 37 mg/dl (40-60); Sodium 139 mmol/L (136-145); Total Protein,Serum 7.2 g/dl (6.3-8.2); Triglycerides 114 mg/dl (30-150); VLDL Cholesterol 23 mg/dL (0-40)
[2021-11-08 11:01] LABS: Direct LDL Cholesterol 106.11 mg/dL (100-129)
[2021-11-08 11:21] LABS: Prostate Specific Ag Screen 0.9 ng/ml (0.0-4.0); Thyroid Stimulating Hormone 1.74 uIU/mL (0.465-4.68)
== END ==
PROVIDERS: Visit Provider Nurse Practitioner Family
DX: I10 Essential (primary) hypertension (principal); E78.5 Hyperlipidemia, unspecified; Z12.5 Encounter for screening for malignant neoplasm of prostate
CPT/HCPCS: 36415; 80053; 80061; 84443; G0103

== ENCOUNTER → 2021-11-11 07:43 | Outpatient (CLI) | payer BC, SELFPAY ==
[2021-11-11 08:07] VITALS: PULSE 88; PULSE 90
== END ==
PROVIDERS: PCP Nurse Practitioner Family; Visit Provider Nurse Practitioner Family
DX: J45.40 Moderate persistent asthma, uncomplicated (principal)
CPT/HCPCS: 94060; 94640

== ENCOUNTER 2021-12-23 19:39 | Emergency (ER) | payer BC, SELFPAY ==
[2021-12-23 19:39] VITALS: BP 161/130; PULSE 86; RESP 20; TEMP 36.7; O2SAT 96; BMI 33.6
--- NOTE | 2021-12-23 19:56 | CT_ITS ---
PROCEDURE INFORMATION: Exam: CT Abdomen And Pelvis Without Contrast Exam date and time: 12/23/2021 8:25 PM Age: 51 years old Clinical indication: Nausea and vomiting; Abdominal pain; Localized; Left lower quadrant (llq); Prior surgery; Surgery type: Umbilical hernia repair; Additional info: Lt flank pain TECHNIQUE: Imaging protocol: Computed tomography of the abdomen and pelvis without contrast. Radiation optimization: All CT scans at this facility use at least one of these dose optimization techniques: automated exposure control; mA and/or kV adjustment per patient size (includes targeted exams where dose is matched to clinical indication); or iterative reconstruction. COMPARISON: [facility] CT abdomen pelvis wo con 10/25/2018 3:44 PM FINDINGS: Lungs: Mild scarring and atelectasis in the lower lungs. Unchanged 4 mm left lower lobe pulmonary nodule image 23 series 3. This is unchanged since at least 2019 and no further imaging follow-up is warranted. Heart: Coronary artery calcifications. Liver: Hepatic steatosis. Gallbladder and bile ducts: Normal. No calcified stones. No ductal dilation. Pancreas: Normal. No ductal dilation. Spleen: Normal. No splenomegaly. Adrenal glands: Normal. No mass. Kidneys and ureters: Mild left hydronephrosis. Nonobstructing right renal calculus. Stomach and bowel: Mild sigmoid diverticulosis without diverticulitis. Appendix: Unremarkable appendix. Intraperitoneal space: Unremarkable. No free air. No significant fluid collection. Vasculature: The arteries demonstrate mild atherosclerotic disease. Lymph nodes: Unremarkable. No enlarged lymph nodes. Urinary bladder: There is a 2 mm calculus in the urinary bladder. Reproductive: Unremarkable as visualized. Bones/joints: Unremarkable. No acute fracture. Soft tissues: There is a healed anterior abdominal wall incision. Other findings: Stigmata of old granulomatous disease. IMPRESSION: 1. Mild left hydronephrosis. This is most likely due to a 2 mm calculus that has recently passed into the urinary bladder. 2. Nonobstructing right renal calculus. 3. Hepatic steatosis.
[2021-12-23 20:00] VITALS: BP 157/61; PULSE 77; O2SAT 97
[2021-12-23 20:06] LABS: Basophils # 0.2 K/mm3 (0-0.2); Basophils % 2.3 % (0.1-2.0); Eosinophils # 0.3 K/mm3 (0.0-0.4); Eosinophils % 4.3 % (0.1-12.0); Hematocrit 50.1 % (42.0-52.0); Hemoglobin 15.7 g/dL (14.1-18.0); Lymphocytes % 30.8 % (10-50); Mean Corpuscular HGB Conc 31.3 g/dL (31.8-35.4); Mean Corpuscular Volume 98.9 fl (80-94); Mean Platelet Volume 7.2 fl (7.4-10.4); Monocytes # 0.5 K/mm3 (0.1-1.0); Monocytes % 7.7 % (1.7-9.3); Neutrophils # 3.6 K/mm3 (1.8-7.8); Neutrophils % 54.9 % (37.0-80.0); Platelet Count 426 K/mm3 (142-424); Red Blood Count 5.06 M/mm3 (4.60-6.20); Red Cell Distribution Width 13.5 % (11.5-17.5); White Blood Count 6.6 K/mm3 (4.8-10.8)
[2021-12-23 20:08] LABS: Microscopic, Urine URINE MICROSCOPIC (MICROSCOPIC)
[2021-12-23 20:10] LABS: Chloride 106 mmol/L (98-107); Potassium 4.3 mmoL/L (3.5-5.1); Sodium 139 mmol/L (136-145)
[2021-12-23 20:12] LABS: Alanine Aminotransferase 69 U/L (12-78); Aspartate Amino Transferase 44 U/L (17-59); Blood Urea Nitrogen 19 mg/dl (9-20); Creatinine Clearance Estimated 139 mL/min (50-200); Estimated Glomerular Filt Rate 79 ml/min (>60); GFR (African American) 95 ML/MIN (>60)
[2021-12-23 20:13] LABS: Albumin Level 4.6 g/dl (3.5-5.0); Albumin/Globulin Ratio 1.4 (1.1-1.8); Alkaline Phosphatase 59 U/L (38-126); Anion Gap 12.3 mEq/L (5-15); Bilirubin,Total 0.7 mg/dl (0.2-1.3); Calcium 9.5 mg/dl (8.4-10.2); Carbon Dioxide 25 mmol/L (22.0-30.0); Globulin 3.3 g/dL (1.3-3.2); Glucose 159 mg/dl (74-100); Total Protein,Serum 7.9 g/dl (6.3-8.2)
[2021-12-23 20:34] LABS: Appearance,Urine CLEAR (Clear); Bilirubin,Urine Negative (Negative); Blood, Urine 3+ (Negative); Color,Urine YELLOW (Yellow); Glucose,Urine (UA) Negative (Negative); Ketones,Urine TRACE (Negative); Leukocyte Esterase,Urine Negative (Negative); Nitrate,Urine Negative (Negative); Protein,Urine TRACE (Negative); Specific Gravity, Urine 1.025 (1.005-1.030)
[2021-12-23 20:43] LABS: C-Reactive Protein 0.9 mg/L (0-4)
[2021-12-23 20:46] LABS: Erythrocyte Sedimentation Rate 5 mm/hr (0-20)
[2021-12-23 20:56] LABS: Procalcitonin 0.094 ng/mL (0.0-2.0)
--- NOTE | 2021-12-23 21:17 | HMH.EDNVD ---
ED Disposition Clinical Impression: Renal colic on left side Disposition: Home, Self-Care Condition on Discharge: Good Instructions: Kidney Stones -- Adult Additional Instructions: fluids and see pcp for follow up Referrals: Silvina Walker APRN [Primary Care Provider] - - Critical Care Critical Care Time: No Attestation: On 12/23/21, the high probability of a clinically significant, sudden or life threatening deterioration of the following system(s) required my full and direct attention, intervention and personal management. The time I documented below is in addition to time spent performing reported procedures but includes the following listed in this critical care notation. Medical Decision Making - Medical Records Medical records reviewed: Yes: I reviewed the patient's medical records. - Connor Inquiry Pt receiving controlled substance: No Vital Signs: 12/23/21 19:39 12/23/21 20:00 Temperature 98.1 F Temperature Source Oral Pulse Rate 77 Pulse Rate [Right] 86 Respiratory Rate 20 Blood Pressure 157/61 H Blood Pressure [Right Arm] 161/130 H Blood Pressure Mean 93 Blood Pressure Mean [Right Arm] 140 02 Sat by Pulse Oximetry 96 97 - Lab Data Lab results reviewed: Yes: I reviewed the patient's lab results. Lab Results 12/23/21 19:50: Urine Color Yellow, Urine Appearance Clear, Urine pH 6.0, Ur Specific Mercedes 1.025, Urine Protein Trace, Urine Glucose (UA) Negative, Urine Ketones Trace, Urine Blood 3+, Urine Nitrate Negative, Urine Bilirubin Negative, Urine Urobilinogen 1.0, Ur Leukocyte Esterase Negative 12/23/21 20:00: WBC 6.6, RBC 5.06, Hgb 15.7, Hct 50.1, MCV 98.9 H, MCH 31.0, MCHC 31.3 L, RDW 13.5, Plt Count 426 H, MPV 7.2 L, Neut % (Auto) 54.9, Lymph % (Auto) 30.8, Kimball % (Auto) 7.7, Eos % (Auto) 4.3, Baso % (Auto) 2.3 H, Neut # (Auto) 3.6, Lymph # (Auto) 2.0, Kimball # (Auto) 0.5, Eos # (Auto) 0.3, Baso # (Auto) 0.2, ESR 5 12/23/21 20:00: Sodium 139, Potassium 4.3, Chloride 106, Carbon Dioxide 25, Anion Gap 12.3, BUN 19, Creatinine 1.00, Estimated Creat Clear 139, Estimated GFR 79, Est GFR ( Amer) 95, Glucose 159 H, Calcium 9.5, Total Bilirubin 0.7, AST 44, ALT 69, Alkaline Phosphatase 59, C-Reactive Protein 0.9, Total Protein 7.9, Albumin 4.6, Globulin 3.3 H, Albumin/Globulin Ratio 1.4, Procalcitonin 0.094 Result diagrams: 12/23/21 20:00 12/23/21 20:00 Orders (Tests/Meds): ED MEDICATIONS Discontinued Medications Generic Name Dose Route Start Last Admin Trade Name Freq PRN Reason Stop Dose Admin Sodium Chloride 1,000 mls @ 999 mls/hr 12/23/21 20:00 12/23/21 20:01 Sod Chlor 0.9% 1000ml Bag IV 12/23/21 21:00 999 mls/hr .Q1H1M SEDRICK Administration Ketorolac Tromethamine 30 mg 12/23/21 19:56 12/23/21 20:00 Ketorolac 30mg/Ml Vial IV 12/23/21 19:57 30 mg ONCE ONE Administration Ondansetron HCl 4 mg 12/23/21 19:56 12/23/21 20:00 Ondansetron 4mg/2ml Vial IV 12/23/21 19:57 4 mg ONCE ONE Administration ORDERS Category Date Time Status UA [Urinalysis and Microscopic] Stat Lab 12/23/21 19:50 Results - CT Data CT Scan: Abdomen, Pelvis Time Received: 21:[address] Reviewed: Yes: I have viewed the radiologist's interpretation Preliminary Findings: Abnormal (see report ) Medical Decision Narrative: has renal colic with passed stone and will see pcp for follow up Nausea/Vomiting/Diarrhea HPI - General Chief complaint: Abdominal Pain Stated complaint: possible kidney stone Time Seen by Provider: 12/23/21 21:17 Mode of Arrival: Ambulatory Source of Information: Patient, Spouse, Medical Record Limitations: No Limitations Description of Symptoms (Recalled from ER Triage Doc. by RN): pt c/o lt flank pain radiating to groin that started @ 6pm - History of Present Illness HPI Narrative: acute lt flank pain with hx of kidney stone MD complaint: nausea, abdominal pain Onset (ago): hour(s) Associated Abdominal Pain: Yes Loca
[2021-12-23 21:21] LABS: Bacteria,Urine Trace /lpf; WBC,Urine Occasional #/hpf (0-3)
[2021-12-23 21:26] VITALS: BP 157/61; PULSE 77; RESP 18; TEMP 36.8; O2SAT 99
== END 2021-12-23 21:29 | disposition home or self-care (01) ==
PROVIDERS: Emergency Provider Emergency Medicine; PCP Nurse Practitioner Family
DX: N23 Unspecified renal colic (principal); R11.0 Nausea; I10 Essential (primary) hypertension; R78.5 Finding of other psychotropic drug in blood; J45.909 Unspecified asthma, uncomplicated; Z79.82 Long term (current) use of aspirin; Z79.899 Other long term (current) drug therapy; Z87.442 Personal history of urinary calculi; Z80.9 Family history of malignant neoplasm, unspecified
CPT/HCPCS: 74176; 80053; 81001; 84145; 85025; 85651; 86140; 96361; 96374; 96375; 99285; J2405

== ENCOUNTER 2022-01-18 10:18 | Emergency (ER) | payer BC, SELFPAY ==
[2022-01-18 10:25] VITALS: BP 128/89; PULSE 81; RESP 18; TEMP 36.7; O2SAT 99; BMI 32.8
--- NOTE | 2022-01-18 10:36 | HMH.EDUTC ---
[facility] Disposition Clinical Impression: Encounter for laboratory testing for COVID-19 virus Disposition: Home, Self-Care Condition on Discharge: Good Instructions: DI for COVID-19 (Suspected or Confirmed ), Preventing the Spread of Coronavirus Discharge Instructions Additional Instructions: *Monitor Temp, Over the counter Motrin or Tylenol as directed/as needed Tylenol every 4 hours and Motrin every 6 hours (as long as your family doctor has told you that you can take it) for fever or pain. and straight to ER if unable to lower temp less than 101.0 after medication given *Warm salt water gargles may help to soothe the throat *Throat Lozenges *Warm fluids like tea with honey may help to soothe the throat *Sleep elevated *Humidifier/Vaporizer Follow up IMMEDIATELY for new or worsening symptoms or no Noticeable improvement over the next 48-72 hours. 911 for difficulty breathing or swallowing You were tested for today for COVID19 your test result should be back in the next 24-48 hours, you may Check your results on the [facility] My Health portal Make sure to take your Vitamins Vit. C Vit D and Zinc if you can take them Referrals: Silvina Walker APRN [Primary Care Provider] - As needed Forms: Work/School Release Medical Decision Making - Connor Inquiry Pt receiving controlled substance: No Connor was queried for this patient: No Vital Signs: 01/18/22 10:25 Temperature 98.1 F Temperature Source Oral Pulse Rate [Left Brachial] 81 Respiratory Rate 18 Blood Pressure [Left Arm] 128/89 Blood Pressure Mean [Left Arm] 102 Blood Pressure Source [Left Arm] Automatic Cuff Blood Pressure Position [Left Arm] Sitting 02 Sat by Pulse Oximetry 99 Oxygen Delivery Method Room Air Orders (Tests/Meds): ORDERS Category Date Time Status Covid-19 Nasal PCR ([facility]) Routine Lab 01/18/22 10:32 Received [facility] HPI - General Stated complaint: at home pos covid /, runny nose, chills Time Seen by Provider: 01/18/22 10:37 Mode of Arrival: Ambulatory Source of Information: Patient Limitations: No Limitations Description of Symptoms (Recalled from Triage Doc. by RN): PATIENT C/O COUGH, RUNNY NOSE, CHILLS SINCE YESTERDAY. REPORTS A POSITIVE AT HOME COVID TEST HEENT Symptoms (Recalled from RN notes): Yes Resp Symptoms (Recalled from RN notes): Yes Skin Symptoms (Recalled from RN notes): No MS Symptoms (Recalled from RN notes): No Functional Status (Recalled from RN notes): WNL - History of Present Illness Provider Complaint: Patient states that he started yesterday with runny nose, cough, and chills States that he took an at home COVID test and it was positive States that he was concerned and wanted to come in and get a test to make sure if it was accurate - Related Data Home Medications Medication Instructions Recorded Confirmed Losartan Potassium [Cozaar 50mg 50 mg PO DAILY 05/28/19 12/13/20 Tablets] Pravastatin Sodium [Pravachol 40mg 80 mg PO DAILY 05/28/19 12/13/20 Tablet] Beclomethasone Dipropionate [Qvar] 8.7 gm IH BID 10/18/19 12/13/20 Ascorbic Acid [Vitamin C] 500 mg PO DAILY 10/20/19 12/13/20 Aspirin [Adult Low Dose Aspirin EC] 81 mg PO DAILY 10/20/19 12/13/20 Fish Oil/Dha/Epa [Fish Oil 1,200 1 each PO DAILY 10/20/19 12/13/20 mg Fish Oil] Garlic 1 each PO DAILY 10/20/19 12/13/20 Glucosa Fournier 2Kcl/Chondroitin Fournier 1 each PO DAILY 10/20/19 12/13/20 [Glucosamine & Chondroitin Cap] Loratadine 10 mg PO DAILY 10/20/19 12/13/20 Multivitamin [Multivitamins] 1 each PO DAILY 10/20/19 12/13/20 Allergies Allergy/AdvReac Type Severity Reaction Status Date / Time No Known Allergies Allergy Verified 11/20/20 13:06 - Worker's Comp Is this a Worker's Comp case?: No [facility] History - Hepatitis A Screen Attestation statement:: This patient has been screened for Hepatitis A risk factors. I have reviewed the patient's past medical history: Yes Medical History: Reports:: Asthma, Hyperlipidemia, Hypert
[2022-01-18 10:37] VITALS: BP 128/89; PULSE 81; RESP 18; TEMP 36.7; O2SAT 99
== END 2022-01-18 10:40 | disposition home or self-care (01) ==
PROVIDERS: Emergency Provider Nurse Practitioner; PCP Nurse Practitioner Family
DX: U07.1 COVID-19 (principal)
CPT/HCPCS: 99212; C9803; G0463; U0003; U0005

== ENCOUNTER → 2022-02-03 16:04 | Outpatient (CLI) | payer BC, SELFPAY | PROVIDERS: PCP Nurse Practitioner Family; Visit Provider Nurse Practitioner Family | DX: G47.33 Obstructive sleep apnea (adult) (pediatric) (principal); R06.83 Snoring | CPT/HCPCS: G0399 ==

== ENCOUNTER → 2022-03-19 12:50 | Outpatient (CLI) | payer BC, SELFPAY | PROVIDERS: PCP Nurse Practitioner Family; Visit Provider Internal Medicine Pulmonary Disease | DX: R06.09 Other forms of dyspnea (principal) | CPT/HCPCS: 94060; 94726; 94729 ==

== ENCOUNTER → 2023-03-30 09:35 | Outpatient (CLI) | payer BC, SELFPAY ==
[2023-03-30 10:10] VITALS: PULSE 70; PULSE 71
== END ==
LOC: RT 09:36
PROVIDERS: PCP Family Medicine; Visit Provider Internal Medicine Pulmonary Disease
DX: J45.40 Moderate persistent asthma, uncomplicated (principal)
CPT/HCPCS: 94060; 94640

== ENCOUNTER 2023-08-20 10:15 | Outpatient (CLI) | payer BC, SELFPAY ==
--- NOTE | 2023-08-20 | CA_ITS ---
APPROVED REPORT Exam: Exercise Treadmill Technologist: Yarely Monsalve, Ht: 6 ft 0 in Wt: 260 lbs BSA: 2.38 m2 HR: 77 bpm BP: 139/98 mmHg Rhythm: NSR Medical History Medical History: HTN, Hyperlipidemia Medications: Pravastatin,,,,, Losartan,,,,, ADVAIR,,,,, LoraTADINE,,,,, Allergies: No known drug allergies Cardiac Risk Factors: HTN, Hyperlipidemia, FHX of CAD Stress Test Details Test: Josef HR Resting HR: 83 bpm Max Heart Rate (APMHR): 167 bpm Max HR Achieved: 142 bpm Target HR (85% APMHR): 142 bpm % of APMHR: 85 Recovery HR: 92 bpm HR response to stress: Normal HR response to stress BP Resting BP: 139.0/98 mmHg Max BP: 218/93 mmHg Recovery BP: 155.0/84.0 mmHg BP response to stress: Abnormal hypertensive response to stress. ECG Resting ECG: NSR, T wave changes in inferior leads Stress EC mm upsloping ST depression Arrhythmia: PACs, PVCs Recovery ECG: Return to baseline within 3 minutes of recovery Recovery Arrhythmia: PACs Clinical Exercise duration: 09:00 min Highest Stage Achieved: Stage 3: 3.4 mph at 14% grade. Exercise capacity: 10.1 METs Overall Exercise Capacity for Age: Average Stress ECG Conclusion The patient was able to exercise for a total of 9 minutes, 0 seconds. He achieved a total of 10.1 METS. He has an average exercise capacity compared to age and sex matched peers. He has normal HR, but exaggerated BP, response to exercise. MAX HR: 142 % OF PM: 85% MAX BP: 218/93 METS: 10.1 Test stopped due to dyspnea. No chest pain NO CP Ectopy: PACs, PVCs ST changes: [address] depression Conclusion: Average exercise capacity. Hypertensive BP response to exercise. Equivocal ST changes for ischemia. GXT only (no imaging). Test Summary REST . . . . . . . Sitting REST 04:20 0.0 0.0 83 . 139/ 98 . . Stage 1 01:00 10.0 1.7 94 . . . . Stage 1 02:00 10.0 1.7 100 . . . . Stage 1 03:00 10.0 1.7 100 . 186/ 90 . . Stage 2 01:00 12.0 2.5 108 . . . . Stage 2 02:00 12.0 2.5 112 . . . . Stage 2 03:00 12.0 2.5 116 . 212/ 86 . . Stage 3 01:00 14.0 3.4 123 . . . . Stage 3 02:00 14.0 3.4 132 . . . . Stage 3 03:00 14.0 3.4 139 . . . Stop exercise at 09:00 RECOVERY 01:00 0.0 0.0 114 . . . . RECOVERY 02:00 0.0 0.0 96 . 218/ 93 . . RECOVERY 03:00 0.0 0.0 88 . 218/ 93 . . RECOVERY 04:00 0.0 0.0 90 . 201/ 87 . . RECOVERY 05:00 0.0 0.0 91 . 201/ 87 . . RECOVERY 05:51 0.0 0.0 97 . 155/ 84 . . Electronically signed by : Consuelo Babcock MD 08/31/2023 00:47:06
--- NOTE | 2023-08-20 10:34 | CA_ITS ---
APPROVED REPORT EXAM: Comprehensive 2D, Doppler, and color-flow Echocardiogram Sewer And Inspector: Seema Glover CRT Ht: 6 ft 0 in Wt: 258lbs BSA: 2.37 BP: 137/89 mmHg Indications: Hyperlipidemia, Hypertension/HDD, HX COVID 2D Dimensions Left Atrium 3.66 cm LA Volume 30.40 mL LVOT 2.05 cm (M/F) 1.5-2.5 LA Volume Index 12.80 mL/m2 (M/F) 16-34 EF AP4 53.90 % GL Strain -16.3 % M-Mode Dimensions RVDd 3.19 cm (0.9-2.6) LVDd 4.04 cm (3.5-5.7) Ao Diam 4.43 cm (2.0-3.7) LVDs 2.42 cm (3.5-5.7) IVSd 2.21 cm (0.6-1.1) PWd 0.98 cm (0.6-1.1) EF (Teich) 71.30% FS 40.10% EDV (Teich) 71.70 mL TAPSE 2.09 (<1.7) ESV (Teich) 20.60 mL LV Diastology E Decel Time 150 (160-240 msec) E/A Ratio 1.24 MED E' 6.2 (>= 7 cm/sec) MED A' 15.80 cm/s E'/MED E' Ratio 12.77 (<= 14) LAT E' 7.7 (>= 10 cm/sec) LAT A' 12.40 cm/s E/LAT E' Ratio 10.29 (<= 14) Aortic Valve AoV Peak Ant. 143.0 (50-130 cm/s) AO Peak GR. 8.20 mmHg Mitral Valve MV E Max Ant. 79.0 (40-130 cm/s) MV A Velocity 64.0 (40-130 cm/s) E/A Ratio 1.24 MV Decel. Time 150 (160-240 ms) Tricuspid Valve TR P. Velocity 219.00 cm/s RAP Estimate 10.00 mmHg RVSP 29.20 mmHg Left Ventricle The left ventricle is normal size. The left ventricular systolic function is normal. The left ventricular ejection fraction is within the normal range. Proximal septal thickening is noted. There is normal LV segmental wall motion. The left ventricular diastolic function is normal. LVEF is 55%. Right Ventricle The right ventricle is mildly dilated. The right ventricular systolic function is normal. Atria The left atrium size is normal. The right atrium size is normal. There is no Doppler evidence of interatrial shunt. The aortic valve opens well. Aortic Valve There is no aortic valvular stenosis. No aortic regurgitation is present. Mitral Valve The mitral valve is normal in structure. No evidence of mitral valve stenosis. There is no mitral valve regurgitation noted. Tricuspid Valve The tricuspid valve leaflets are thin and pliable. Trace tricuspid regurgitation. There is insufficient TR jet to estimate RVSP. Pulmonic Valve The pulmonary valve is normal in structure. Trace pulmonic regurgitation. Great Vessels The aortic root is normal in size. The ascending aorta is normal in size. The IVC is not well-visualized. Pericardium There is no pericardial effusion. Other Information Study Quality: Technically Difficult Conclusion Technically difficult study due to poor acoustic windows. Normal biventricular systolic function. Mild RV dilation. No significant valvular stenosis or regurgitation. Electronically signed by : Consuelo Babcock MD 08/23/2023 22:44:02
== END 2023-08-20 23:59 ==
LOC: RT 10:16
PROVIDERS: PCP Nurse Practitioner; Visit Provider Nurse Practitioner
DX: R06.09 Other forms of dyspnea (principal); R07.9 Chest pain, unspecified
CPT/HCPCS: 93017; 93018; 93306

== ENCOUNTER 2023-08-26 13:32 | Outpatient (CLI) | payer BC, SELFPAY ==
--- NOTE | 2023-08-26 13:38 | CT_ITS ---
FINAL REPORT CLINICAL HISTORY: Pulmonary nodules COMPARISON: 02/15/2019 FINDINGS: Axial CT images of the chest were obtained with contrast. Coronal reformatted images were also obtained. This study was performed with techniques to keep radiation doses as low as reasonably achievable, (ALARA). Individualized dose reduction techniques using automated exposure control or adjustment of mA and/or KV according to the patient''''s size were employed. There are severe left coronary artery calcifications.There is no evidence of mediastinal or hilar mass or adenopathy.No axillary mass or adenopathy is identified. There is a stable, right upper lobe anterior nodule measuring 4 mm best seen on image 32. There is also a stable, 5 mm lateral left lower lobe nodule seen on image 60. Mild scarring is seen at the lung bases. No new mass or nodule is identified. Limited imaging of the upper abdomen demonstrates fatty infiltration of the liver. IMPRESSION: Stable 4 and 5 mm pulmonary nodules. No new mass or nodule identified. Reviewed, Interpreted and Dictated by Caden Orozco III, MD Transcribed by Maria M Martinez Authenticated and [facility]
[2023-08-26 13:53] LABS: Blood Urea Nitrogen 16 mg/dl (9-20); Estimated Glomerular Filt Rate 101 ml/min (>60); GFR (African American) 122 ML/MIN (>60)
[2023-08-26] MEDS: IOPAMIDOL-370 (76%);100ML BOTTLE 75 ML IV (14:32)
[2023-08-26] MEDS: SODIUM CHLORIDE 0.9% 10ML SYR (RAD ONLY) 10 ML IV (14:32)
== END 2023-08-26 23:59 ==
LOC: RAD 13:33
PROVIDERS: PCP Nurse Practitioner; Visit Provider Nurse Practitioner
DX: R07.9 Chest pain, unspecified (principal)
CPT/HCPCS: 36415; 71260; 82565; 84520; Q9967

== ENCOUNTER 2023-09-09 11:53 | Outpatient (CLI) | payer BC, SELFPAY ==
[2023-09-09] VITALS (7 sets, daily range): BP systolic 111–146; BP diastolic 66–100; PULSE 58–75; RESP 16–18; TEMP 36.6; O2SAT 96–99; BMI 35.2
--- NOTE | 2023-09-09 11:54 | CT_ITS ---
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 A noncontrast coronary calcium scan was performed. A CT attenuation threshold of 130 Hounsfield units (HU) was used for the detection of calcium in contiguous voxels of 1 sq mm in area to be counted as individual lesions. Bolus tracking in the ascending aorta with a threshold of 180 HU was performed. Immediately afterwards, ECG synchronized cardiac CT was then performed from the cardiac base to apex using retrospective gating with ECG tube current modulation. A total of 85 mL of Isovue 370 mg/mL contrast medium was administered at 5 mL/sec followed by a saline flush using a biphasic injection protocol. A tube voltage of 120 KVp was used. The patient received the following medications prior to the cardiac CT. 50 mg of oral metoprolol 5 mg of intravenous metoprolol 15 mg of oral ivabradine 0.8 mg of sublingual nitroglycerin The average heart rate at the time of acquisition was 57 bpm and regular. Image Reconstruction Transaxial images were reconstructed at 0.67 mm slide thickness. Data was reviewed interactively on an advanced workstation capable of 2 and 3-dimensional displays in all conventional reconstruction formats, including multiplanar reformations, maximum intensity projections, curved multiplanar reformations, and volume rendered reconstructions. When applicable, selected routine images describing the relevant coronary anatomy and pathology were saved and sent to PACS. Complications None Technical Quality Overall image quality was good. Coronary artery opacification was adequate. Total DLP (Dose-Length Product) is 1271.4 mGy-cm. The reported value represents the total of one or more individual components during the CT acquisition of this date and at this time, and as such, the same value may appear in more than one CT report depending on the interpreting/reporting physicians. COMPARISON None FINDINGS CT Coronary Calcium Scoring LMA (Left Main Artery) = 28 LAD (Left Anterior Descending) = 680 LCX (Left Coronary Circumflex) = 252 RCA (Right Coronary Artery) = 915 Total Calcium Score = 1875 using the AJ-130 method. The observed calcium score of 1875 is at 99th percentile for subjects of the same age, sex, and race/ethnicity. The interpretation of the calcium heart score is based on the following continuum*: 0 = no calcified plaque detected (risk of coronary artery disease is very low ??? less than 5%) 1-10 = calcium detected in extremely minimal levels (risk of coronary diseases is still low ??? less than 10%) 11-100 = mild levels of plaque detected with certainty (mild or minimal narrowing of heart arteries is likely) 101-400 = definite,at least moderate levels of plaque detected (relatively high risk of a heart attack within 3-5 years) >401-999 = extensive levels of plaque detected (high risk of heart attack, high levels of vascular disease are present, high likelihood of at least one significant coronary narrowing) *The calcium heart score quantifies the burden of coronary calcification/plaque in the coronary arteries. The calcium heart score is not able to evaluate the presence or burden of non-calcified (i.e. soft) plaque. There is also identifiable calcification in the ascending aorta. Coronary CT Angiography The coronary arterial system is right dominant. Quantitative Stenosis Grading: Left Main (LM): The left main originates normally from the left sinus of Valsalva. The LM bifurcates into the left anterior descending artery and left circumflex artery. There is calcified plaque noted in the distal LM, with < 30% luminal stenosis. Left Anterior Descending (LAD) and Diagonal Branches: The LAD gives off 4 diagonal branch(es). There are multiple mixed calcified/noncalcified plaque noted in the proximal and mid LAD, with presence of up to 50-70% luminal stenosis. There is no evidence of LAD-myocardial bridge. Left Circumflex (LCX) and Obtuse Marginals (OM): The LCX gives off 1 Obtuse Marginal (OM) branch. There is mixed calcified/noncalcified plaque noted in the proximal LCx, with up to 70-90% luminal stenosis. Right Coronary Artery (RCA): The RCA originates normally from the right sinus of Valsalva. The RCA gives off a posterior descending artery (PDA) and posterolateral (PL) branches. There is calcified/noncalcified plaque noted in the mid to distal RCA, with up to 50-70% luminal stenosis. Non-Coronary Cardiac Findings: Analysis of the left ventricular (LV) structure and function was performed after 3-D reconstruction of the LV from axial images, with user-corrected automatic contouring for assessment of LV volumes and user-defined reconstruction from oblique planes for measurement of 3-D cardiac structure and function. -The left ventricle systolic function is normal. -There is no left atrial appendage filling defect. Two right pulmonary veins and two left pulmonary veins drain normally into the left atrium. -No pericardial thickening or calcification. -Central and branch pulmonary arteries in the [id number] are unremarkable. -Thoracic aorta within the visualized thoracic aortic-branches in the [id number] is unremarkable. Extracardiac Structures No significant extra-cardiac findings. Note, however, that this study is focused on the cardiac findings. IMPRESSION Technically difficult study due to significant calcification, which may affect the ability to distinguish the degree of luminal stenosis. -Extensive coronary calcification with an Agatston score = 1875 using the AJ-130 method. -The observed calcium score of 1875 is at 99th percentile for subjects of the same age, sex, and race/ethnicity. -Triple-vessel atherosclerotic disease with possible presence of flow-limiting atherosclerosis, as noted above. -CAD-RADS 4B. Management recommendations per ACC/AHA guidelines*, as clinically appropriate. *Recommendations: CAD RADS 0: Reassurance. Consider non-atherosclerotic causes of chest pain. CAD RADS 1: Consider non-atherosclerotic causes of chest pain. Consider preventive therapy and risk factor modification. CAD RADS 2: Consider non-atherosclerotic causes of chest pain. Consider preventive therapy and risk factor modification, particularly for patients with nonobstructive plaque in multiple segments. CAD RADS 3: Consider further functional testing. Consider symptom-guided anti-ischemic and preventive pharmacotherapy as well as risk factor modification per published guideline statements. CAD RADS 4A: Consider further functional testing or invasive coronary angiography with revascularization per published guideline statements. Consider symptom-guided anti-ischemic and preventive pharmacotherapy as well as risk factor modification per published guideline statements. CAD RADS 4B: Invasive coronary angiography recommended with revascularization per published guideline statements. Consider symptom-guided anti-ischemic and preventive pharmacotherapy as well as risk factor modification per published guideline statements. CAD RADS 5: Consider invasive angiography and/or viability assessment with revascularization per published guideline statements. Consider symptom-guided anti-ischemic and preventive pharmacotherapy as well as risk factor modification per published guideline statements. CRITICAL RESULT None COMMUNICATION Per this written report The coronary and cardiac findings of this CCTA were reviewed, reported, and signed by Smith Babcock MD (Business Information Consultant) Conclusion Electronically signed by : Consuelo Babcock MD 09/13/2023 11:19:50
[2023-09-09] MEDS: IVABRADINE HCL 7.5MG TABLET PO (12:26)
[2023-09-09] MEDS: METOPROLOL TARTRATE 50MG TABLET PO (12:26)
[2023-09-09] MEDS: NITROGLYCERIN 0.4MG SL TABLET SL (13:24)
[2023-09-09] MEDS: METOPROLOL TARTRATE 5MG/5ML VIAL 5 MG IV (13:24)
[2023-09-09 13:25] LABS: Anion Gap 12.3 mEq/L (5-15); Blood Urea Nitrogen 15 mg/dl (9-20); Calcium 9.6 mg/dl (8.4-10.2); Carbon Dioxide 25 mmol/L (22.0-30.0); Chloride 105 mmol/L (98-107); Creatinine Clearance Estimated 204 mL/min (50-200); Estimated Glomerular Filt Rate 118 ml/min (>60); GFR (African American) 143 ML/MIN (>60); Glucose 155 mg/dl (74-100); Potassium 4.3 mmoL/L (3.5-5.1); Sodium 138 mmol/L (136-145)
[2023-09-09] MEDS: 0.9 % SODIUM CHLORIDE 50 ML VIAL IV (13:59)
[2023-09-09] MEDS: IOPAMIDOL-370 (76%);100ML BOTTLE 85 ML IV (14:01)
[2023-09-09] MEDS: SODIUM CHLORIDE 0.9% 10ML SYR (RAD ONLY) 10 ML IV (14:01)
== END 2023-09-09 13:55 | disposition home or self-care (01) ==
PROVIDERS: PCP Nurse Practitioner; Visit Provider Nurse Practitioner Family
DX: R07.89 Other chest pain (principal); R94.39 Abnormal result of other cardiovascular function study; Z82.49 Family history of ischemic heart disease and other diseases of the circulatory system; R06.09 Other forms of dyspnea; I10 Essential (primary) hypertension; E78.5 Hyperlipidemia, unspecified
CPT/HCPCS: 75571; 75574; 80048; Q9967

== ENCOUNTER 2023-09-27 08:25 | Day surgery (SDC) | payer BC, SELFPAY ==
[2023-09-27] VITALS (8 sets, daily range): BP systolic 106–172; BP diastolic 71–109; PULSE 60–69; RESP 15–18; TEMP 36.9; O2SAT 92–96; BMI 35.1
--- NOTE | 2023-09-27 07:22 | IR_ITS ---
APPROVED REPORT Patient Location: Outpatient PROCEDURES Left heart catheterization Left ventriculogram Selective coronary angiogram INDICATION Known coronary artery disease, High calcium score, Purported three-vessel disease by CCTA Informed consent was obtained prior to the procedure. COMPLICATIONS NONE Estimated Blood Loss: LESS THAN 10 ML TECHNIQUE One percent lidocaine used to anesthetize the right anterior aspect of the wrist. The right radial artery was accessed via the Seldinger technique. A 6 Welsh sheath was placed in the right radial artery. 2.5 mg of Verapamil, 800 mcg of nitroglycerin, 1mg Lidocaine and 5000 U Heparin were given through the arterial sheath. The papa catheter was also used to perform left heart catheterization, left ventriculogram and selective coronary angiogram. At the end of the procedure the sheath was removed good hemostasis was achieved using Traclet band, patient was transferred to the postop holding area in stable condition. ANGIOGRAPHIC RESULTS The left main artery Normal The left anterior descending artery Has a stent in the proximal segment which is widely patent with eccentric 30% in-stent restenosis. There is additional 30% mid stenoses. The circumflex artery Nondominant gives rise to a moderate size ramus intermedius which has proximal tandem 30% stenoses. The remaining circumflex artery is widely patent The right coronary artery Large dominant approximately normal with mid vessel 30% stenoses with additional 30% stenosis in the posterior descending artery The CEDENO ventriculogram reveals Normal 60% The left ventricular end-diastolic pressure Moderate to severely elevated at 35 mmHg IMPRESSION Patent proximal LAD stent as described above Mild diffuse coronary artery disease as described above Normal ejection fraction Elevated LVEDP which is likely etiology for patient's symptoms PLAN 1. Medical management for HFpEF 2. Medical management for coronary disease with aggressive risk factor modification 3. Recommend sleep study Electronically signed by : Rayray French MD 09/27/2023 11:33:48
[2023-09-27 09:08] LABS: Basophils # 0.1 K/mm3 (0-0.2); Basophils % 1.2 % (0.1-2.0); Eosinophils # 0.4 K/mm3 (0.0-0.4); Eosinophils % 6.2 % (0.1-12.0); Hematocrit 45.7 % (42.0-52.0); Hemoglobin 15.2 g/dL (14.1-18.0); Lymphocytes # 1.6 K/mm3 (0.7-4.5); Lymphocytes % 25.8 % (10-50); Mean Corpuscular HGB Conc 33.3 g/dL (31.8-35.4); Mean Corpuscular Hemoglobin 32.4 pg (27.0-31.2); Mean Corpuscular Volume 97.4 fl (80-94); Mean Platelet Volume 7.4 fl (7.4-10.4); Monocytes # 0.4 K/mm3 (0.1-1.0); Monocytes % 6.6 % (1.7-9.3); Neutrophils # 3.6 K/mm3 (1.8-7.8); Neutrophils % 60.3 % (37.0-80.0); Platelet Count 272 K/mm3 (142-424); Red Blood Count 4.69 M/mm3 (4.60-6.20)
[2023-09-27 09:20] LABS: Chloride 106 mmol/L (98-107); Sodium 140 mmol/L (136-145)
[2023-09-27 09:21] LABS: Potassium 4.1 mmoL/L (3.5-5.1)
[2023-09-27 09:23] LABS: Blood Urea Nitrogen 14 mg/dl (9-20); Creatinine Clearance Estimated 203 mL/min (50-200); Estimated Glomerular Filt Rate 118 ml/min (>60); GFR (African American) 143 ML/MIN (>60)
[2023-09-27 09:24] LABS: Anion Gap 10.1 mEq/L (5-15); Calcium 9.4 mg/dl (8.4-10.2); Carbon Dioxide 28 mmol/L (22.0-30.0); Glucose 170 mg/dl (74-100)
[2023-09-27] MEDS: HEPARIN 1,000 UNITS/500ML NS (CATH LAB) 3000 UNIT IV (11:17)
[2023-09-27] MEDS: VERAPAMIL 2.5MG/ML 2ML VIAL 2.5 MG IV (11:18)
[2023-09-27] MEDS: LIDOCAINE 1% 10ML MDV 20 ML IJ (11:18)
[2023-09-27] MEDS: NITROGLYCERIN 800MCG/8ML SYR (CATH LAB) 800 MCG IA (11:18)
[2023-09-27] MEDS: HEPARIN 1,000 UNITS/ML 10ML VIAL (CATH LAB) 10000 UNIT IV (11:18)
[2023-09-27] MEDS: 0.9 % SODIUM CHLORIDE 500 ML 25 ML IV (11:18)
[2023-09-27] MEDS: MIDAZOLAM HCL 1MG/1ML 5ML VIAL 1 MG IV (11:44)
[2023-09-27] MEDS: FENTANYL 100MCG/2ML VIAL 50 MCG IV (11:44)
[2023-09-27] MEDS: IOPAMIDOL-370 (76%);100ML BOTTLE 50 ML IV (12:59)
== END 2023-09-27 13:45 | disposition home or self-care (01) ==
PROVIDERS: PCP Nurse Practitioner; Visit Provider Internal Medicine
DX: I25.118 Atherosclerotic heart disease of native coronary artery with other forms of angina pectoris (principal); I11.0 Hypertensive heart disease with heart failure; R93.1 Abnormal findings on diagnostic imaging of heart and coronary circulation; E78.2 Mixed hyperlipidemia; R94.39 Abnormal result of other cardiovascular function study; Z82.49 Family history of ischemic heart disease and other diseases of the circulatory system; Z79.899 Other long term (current) drug therapy; I50.30 Unspecified diastolic (congestive) heart failure
CPT/HCPCS: 80048; 85025; 93458; 99152; C1725; C1760; C1769; J1644; Q9967

== ENCOUNTER 2023-10-18 13:21 | Outpatient (CLI) | payer BC, SELFPAY ==
[2023-10-18 13:42] LABS: Basophils # 0.1 K/mm3 (0-0.2); Basophils % 1.3 % (0.1-2.0); Eosinophils # 0.3 K/mm3 (0.0-0.4); Eosinophils % 4.1 % (0.1-12.0); Hemoglobin 15.8 g/dL (14.1-18.0); Lymphocytes # 1.9 K/mm3 (0.7-4.5); Lymphocytes % 29.1 % (10-50); Mean Corpuscular HGB Conc 32.9 g/dL (31.8-35.4); Mean Corpuscular Volume 97.3 fl (80-94); Monocytes # 0.8 K/mm3 (0.1-1.0); Monocytes % 11.7 % (1.7-9.3); Neutrophils # 3.5 K/mm3 (1.8-7.8); Neutrophils % 53.8 % (37.0-80.0); Platelet Count 288 K/mm3 (142-424); Red Blood Count 4.93 M/mm3 (4.60-6.20); Red Cell Distribution Width 13.1 % (11.5-17.5); White Blood Count 6.5 K/mm3 (4.8-10.8)
[2023-10-18 15:12] LABS: Alanine Aminotransferase 84 U/L (12-78); Albumin Level 4.7 g/dl (3.5-5.0); Alkaline Phosphatase 52 U/L (38-126); Anion Gap 14.5 mEq/L (5-15); Aspartate Amino Transferase 43 U/L (17-59); Bilirubin,Direct 0.2 mg/dl (0.0-0.4); Bilirubin,Indirect 0.6 mg/dL (0.0-0.9); Bilirubin,Total 0.8 mg/dl (0.2-1.3); Bilirubin,Unconjugated 0.7 mg/dL (0.0-1.1); Blood Urea Nitrogen 20 mg/dl (9-20); Calcium 10.4 mg/dl (8.4-10.2); Carbon Dioxide 22 mmol/L (22.0-30.0); Chloride 107 mmol/L (98-107); Chol/HDL Ratio 3.5 (1-3.5); Cholesterol 183 mg/dl (140-200); Estimated Glomerular Filt Rate 118 ml/min (>60); GFR (African American) 143 ML/MIN (>60); Glucose 147 mg/dl (74-100); HDL Cholesterol 52 mg/dl (40-60); Magnesium 1.8 mg/dl (1.6-2.3); Potassium 4.5 mmoL/L (3.5-5.1); Sodium 139 mmol/L (136-145); Total Protein,Serum 7.9 g/dl (6.3-8.2); Triglycerides 116 mg/dl (30-150); VLDL Cholesterol 23 mg/dL (0-40)
[2023-10-18 15:23] LABS: Direct LDL Cholesterol 111.13 mg/dL (100-129)
== END 2023-10-18 23:59 | disposition home or self-care (01) ==
LOC: LAB 13:22
PROVIDERS: PCP Nurse Practitioner; Visit Provider Internal Medicine
DX: I11.9 Hypertensive heart disease without heart failure (principal); I25.118 Atherosclerotic heart disease of native coronary artery with other forms of angina pectoris; R06.09 Other forms of dyspnea; R93.1 Abnormal findings on diagnostic imaging of heart and coronary circulation; E78.2 Mixed hyperlipidemia; R94.39 Abnormal result of other cardiovascular function study; Z82.49 Family history of ischemic heart disease and other diseases of the circulatory system
CPT/HCPCS: 36415; 80048; 80061; 80076; 83735; 85025

== ENCOUNTER 2023-11-18 11:13 | Outpatient (CLI) | payer BC, SELFPAY ==
[2023-11-18 11:42] LABS: Basophils # 0.1 K/mm3 (0-0.2); Basophils % 1.1 % (0.1-2.0); Eosinophils # 0.2 K/mm3 (0.0-0.4); Eosinophils % 4.4 % (0.1-12.0); Hematocrit 45.1 % (42.0-52.0); Hemoglobin 14.7 g/dL (14.1-18.0); Lymphocytes # 1.6 K/mm3 (0.7-4.5); Lymphocytes % 29.1 % (10-50); Mean Corpuscular HGB Conc 32.7 g/dL (31.8-35.4); Mean Corpuscular Hemoglobin 31.8 pg (27.0-31.2); Mean Corpuscular Volume 97.3 fl (80-94); Mean Platelet Volume 7.5 fl (7.4-10.4); Monocytes # 0.4 K/mm3 (0.1-1.0); Monocytes % 6.7 % (1.7-9.3); Neutrophils # 3.2 K/mm3 (1.8-7.8); Neutrophils % 58.7 % (37.0-80.0); Platelet Count 294 K/mm3 (142-424); Red Blood Count 4.63 M/mm3 (4.60-6.20); Red Cell Distribution Width 13.4 % (11.5-17.5); White Blood Count 5.5 K/mm3 (4.8-10.8)
[2023-11-18 12:19] LABS: Chloride 104 mmol/L (98-107); Potassium 4.1 mmoL/L (3.5-5.1); Sodium 136 mmol/L (136-145)
[2023-11-18 12:21] LABS: Blood Urea Nitrogen 15 mg/dl (9-20); Estimated Glomerular Filt Rate 118 ml/min (>60); GFR (African American) 143 ML/MIN (>60)
[2023-11-18 12:22] LABS: Alanine Aminotransferase 83 U/L (12-78); Albumin Level 4.3 g/dl (3.5-5.0); Alkaline Phosphatase 59 U/L (38-126); Anion Gap 14.1 mEq/L (5-15); Aspartate Amino Transferase 42 U/L (17-59); Bilirubin,Direct 0.1 mg/dl (0.0-0.4); Bilirubin,Indirect 0.7 mg/dL (0.0-0.9); Bilirubin,Total 0.8 mg/dl (0.2-1.3); Bilirubin,Unconjugated 0.7 mg/dL (0.0-1.1); Calcium 9.8 mg/dl (8.4-10.2); Carbon Dioxide 22 mmol/L (22.0-30.0); Glucose 159 mg/dl (74-100); Total Protein,Serum 7.4 g/dl (6.3-8.2)
[2023-11-18 12:50] LABS: Thyroid Stimulating Hormone 1.25 uIU/mL (0.465-4.68)
== END 2023-11-18 23:59 | disposition home or self-care (01) ==
PROVIDERS: PCP Nurse Practitioner; Visit Provider Internal Medicine
DX: E78.2 Mixed hyperlipidemia (principal); I51.89 Other ill-defined heart diseases; Z82.49 Family history of ischemic heart disease and other diseases of the circulatory system; R06.00 Dyspnea, unspecified; K21.9 Gastro-esophageal reflux disease without esophagitis; E11.9 Type 2 diabetes mellitus without complications
CPT/HCPCS: 36415; 80048; 80076; 84439; 84443; 85025

== ENCOUNTER 2024-02-04 12:16 | Outpatient (CLI) | payer BC, SELFPAY ==
--- NOTE | 2024-02-04 12:32 | CT_ITS ---
FINAL REPORT TECHNIQUE: Routine axial images were obtained from the lung apices to below the diaphragm following IV contrast administration. Individualized dose reduction techniques using automated exposure control or adjustment of the mA and/or kV according to the patient size were employed. CLINICAL HISTORY: LUNG NODULE COMPARISON: 08/26/2023 FINDINGS: Again noted is a 3 mm nodule in the anterior right upper lobe on image 37 series 2 and a 5 mm nodule in the peripheral left base on image 58 of series 2. These nodules are stable from prior. Scarring is noted at the right lung base. No pleural or pericardial effusion is seen. No adenopathy or mass lesion is present. Limited images of the upper abdomen demonstrate fatty infiltration of the liver. IMPRESSION: Stable lung nodules. Fatty liver. Reviewed, Interpreted and Dictated by Oneil Wilder MD Transcribed by Nicole Helms Authenticated and [facility]
[2024-02-04 12:47] LABS: Blood Urea Nitrogen 16 mg/dl (9-20); Estimated Glomerular Filt Rate 141 ml/min (>60); GFR (African American) 171 ML/MIN (>60)
[2024-02-04] MEDS: SODIUM CHLORIDE 0.9% 10ML SYR (RAD ONLY) 10 ML IV (13:08)
[2024-02-04] MEDS: IOPAMIDOL-370 (76%);100ML BOTTLE 75 ML IV (13:08)
== END 2024-02-04 23:59 | disposition home or self-care (01) ==
PROVIDERS: PCP Nurse Practitioner; Visit Provider Nurse Practitioner
DX: R91.1 Solitary pulmonary nodule (principal)
CPT/HCPCS: 36415; 71260; 82565; 84520; Q9967

== ENCOUNTER 2024-03-30 09:47 | Outpatient (CLI) | payer BC, SELFPAY | END 2024-03-30 23:59 | disposition home or self-care (01) | LOC: RT 09:48 | PROVIDERS: PCP Nurse Practitioner; Visit Provider Internal Medicine Pulmonary Disease | DX: R06.09 Other forms of dyspnea (principal) | CPT/HCPCS: 94060; 94618; 94726; 94729 ==

== ENCOUNTER 2024-11-07 14:24 | Outpatient (CLI) | payer BC, SELFPAY ==
[2024-11-07 15:37] LABS: Basophils # 0.1 K/mm3 (0-0.2); Eosinophils # 0.3 Kmm3 (0.0-0.4); Eosinophils % 4.1 % (0.1-12.0); Hematocrit 45.8 % (42.0-52.0); Hemoglobin 15.6 g/dL (14.1-18.0); Immature Granulocytes # 0.02 10^3uL; Immature Granulocytes % 0.3 %; Lymphocytes # 1.7 K/mm3 (0.7-4.5); Mean Corpuscular HGB Conc 34.1 g/dL (31.8-35.4); Mean Corpuscular Hemoglobin 30.6 pg (27.0-31.2); Mean Corpuscular Volume 89.8 fl (80-94); Mean Platelet Volume 8.9 fl (7.4-10.4); Monocytes # 0.6 K/mm3 (0.1-1.0); Neutrophils # 3.6 K/mm3 (1.8-7.8); Neutrophils % 58.6 % (37.0-80.0); Nucleated Red Blood Cells # 0 10^3/uL; Nucleated Red Blood Cells % 0 %; Platelet Count 340 K/mm3 (142-424); Red Cell Distribution Width 12.7 % (11.5-17.5); Red Cell Distribution Width-SD 42.2 fL; White Blood Count 6.1 K/mm3 (4.8-10.8)
[2024-11-07 16:10] LABS: Alanine Aminotransferase 46 U/L (12-78); Albumin Level 4.9 g/dl (3.5-5.0); Alkaline Phosphatase 60 U/L (38-126); Anion Gap 15.1 mEq/L (5-15); Aspartate Amino Transferase 28 U/L (17-59); Bilirubin,Direct 0.2 mg/dl (0.0-0.4); Bilirubin,Indirect 0.7 mg/dL (0.0-0.9); Bilirubin,Total 0.9 mg/dl (0.2-1.3); Bilirubin,Unconjugated 0.7 mg/dL (0.0-1.1); Blood Urea Nitrogen 15 mg/dl (9-20); Calcium 9.9 mg/dl (8.4-10.2); Carbon Dioxide 25 mmol/L (22.0-30.0); Chloride 104 mmol/L (98-107); Chol/HDL Ratio 2.3 (1-3.5); Cholesterol 98 mg/dl (140-200); Estimated Glomerular Filt Rate 118 ml/min (>60); GFR (African American) 142 ML/MIN (>60); Glucose 146 mg/dl (74-100); HDL Cholesterol 43 mg/dl (40-60); Magnesium 2.1 mg/dl (1.6-2.3); Potassium 4.1 mmoL/L (3.5-5.1); Sodium 140 mmol/L (136-145); Total Protein,Serum 7.6 g/dl (6.3-8.2); Triglycerides 206 mg/dl (30-150); VLDL Cholesterol 41 mg/dL (0-40)
[2024-11-07 16:20] LABS: Direct LDL Cholesterol 32.42 mg/dL (100-129)
[2024-11-07 16:38] LABS: Thyroid Stimulating Hormone 1.11 uIU/mL (0.465-4.68)
[2024-11-07 17:28] LABS: Hemoglobin A1C 6.7 % (4.0-6.0)
== END 2024-11-07 23:59 | disposition home or self-care (01) ==
LOC: LAB 14:24
PROVIDERS: PCP Nurse Practitioner; Visit Provider Internal Medicine
DX: I11.9 Hypertensive heart disease without heart failure (principal); I25.10 Atherosclerotic heart disease of native coronary artery without angina pectoris; R00.2 Palpitations
CPT/HCPCS: 36415; 80048; 80061; 80076; 83036; 83735; 84439; 84443; 85025; 93270

== ENCOUNTER 2024-11-20 07:39 | Outpatient (CLI) | payer BC, SELFPAY ==
--- NOTE | 2024-11-20 08:00 | CA_ITS ---
APPROVED REPORT EXAM: Comprehensive 2D, Doppler, and color-flow Echocardiogram : Rina Hull RT(R) Ht: 6 ft 0 in Wt: 230lbs BSA: 2.26 BP: 125/85 mmHg Indications: Dyspnea 2D Dimensions Left Atrium 3.21 cm M: 3.0 - 4.0 LA Volume 28.00 mL LVOT 2.07 cm (M/F) 1.5-2.5 LA Volume Index 12.39 mL/m2 (M/F) 16-34 EF AP4 47.20 % GL Strain -12.9 % M-Mode Dimensions RVDd 3.73 cm (0.9-2.6) LVDd 4.17 cm (3.5-5.7) Ao Diam 3.21 cm (2.0-3.7) LVDs 3.09 cm (3.5-5.7) IVSd 1.28 cm (0.6-1.1) PWd 0.79 cm (0.6-1.1) EF (Teich) 51.40% FS 25.90% EDV (Teich) 77.30 mL ESV (Teich) 37.60 mL LV Diastology E Decel Time 197 (160-240 msec) E/A Ratio 1.1 MED E' 6.1 (>= 7 cm/sec) E'/MED E' Ratio 9.90 (<= 14) LAT E' 8.9 (>= 10 cm/sec) E/LAT E' Ratio 6.79 (<= 14) Mitral Valve MV E Max Ant. 60.0 (40-130 cm/s) MV A Velocity 53.0 (40-130 cm/s) E/A Ratio 1.14 MV Decel. Time 197 (160-240 ms) Left Ventricle The left ventricle is normal size. The left ventricular systolic function is normal. The left ventricular ejection fraction is within the normal range. There is increased overall thickness. There is normal LV segmental wall motion. The left ventricular diastolic function is normal. LVEF is 55%. Right Ventricle The right ventricle is mildly dilated. The right ventricular systolic function is normal. Atria The left atrium size is normal. The right atrium size is normal. There is no Doppler evidence of interatrial shunt. Aortic Valve The aortic valve is mildly thickened. There is no aortic valvular stenosis. Trace aortic regurgitation. Mitral Valve The mitral valve is normal in structure. No evidence of mitral valve stenosis. Mild mitral regurgitation. Tricuspid Valve Tricuspid valve is grossly normal in structure and function. Trace tricuspid regurgitation. Pulmonic Valve The pulmonary valve is normal in structure. Trace pulmonic regurgitation. Great Vessels The aortic root is normal in size. IVC is normal in size and collapses >50% with inspiration. Pericardium There is no pericardial effusion. Other Information Study Quality: Fair Conclusion Normal biventricular systolic function. Mild RV dilation. Mild MR. Electronically signed by : Consuelo Babcock MD 11/28/2024 13:07:45
== END 2024-11-20 23:59 | disposition home or self-care (01) ==
LOC: RT 07:40
PROVIDERS: PCP Nurse Practitioner; Visit Provider Internal Medicine
DX: I34.0 Nonrheumatic mitral (valve) insufficiency (principal); I11.9 Hypertensive heart disease without heart failure; I25.118 Atherosclerotic heart disease of native coronary artery with other forms of angina pectoris; R93.1 Abnormal findings on diagnostic imaging of heart and coronary circulation
CPT/HCPCS: 93306

== ENCOUNTER 2025-03-29 09:44 | Outpatient (CLI) | payer BC, SELFPAY ==
[2025-03-29] MEDS: ALBUTEROL 0.083% 2.5 MG/3 ML NEB IH (15:27)
== END 2025-03-29 23:59 | disposition home or self-care (01) ==
LOC: RT 09:44
PROVIDERS: PCP Nurse Practitioner; Visit Provider Internal Medicine Pulmonary Disease
DX: R94.2 Abnormal results of pulmonary function studies (principal); R06.02 Shortness of breath
CPT/HCPCS: 94060; 94618; 94726; 94729